=== PATIENT | female | born 1990 | race Caucasian/White ===

== ENCOUNTER → 2020-02-23 09:50 | Outpatient (BNVA) | payer OTHER, SELFPAY | PROVIDERS: PCP Family Medicine; Visit Provider Obstetrics & Gynecology | DX: N75.0 Cyst of Bartholin's gland (principal); Z98.890 Other specified postprocedural states | CPT/HCPCS: 99212 ==

== ENCOUNTER 2020-07-24 14:00 | Outpatient (RCR) | payer OTHER, SELFPAY | END 2020-08-20 12:05 | disposition other institution (70) | LOC: HO.PTWFD 14:00 | PROVIDERS: Visit Provider Family Medicine | DX: M54.12 Radiculopathy, cervical region (principal) | CPT/HCPCS: 97110; 97161; 97535 ==

== ENCOUNTER 2020-09-25 12:46 | Outpatient (REF) | payer OTHER, SELFPAY ==
[2020-09-25 13:40] LABS: MANUAL DIFF FLAG NO
[2020-09-25 13:43] LABS: Basophils Percent Auto 0.1 % (0-2); Eosinophils Absolute Auto 0.1 X10*3/uL (0.0-0.4); Eosinophils Percent Auto 0.7 % (0-4); Hematocrit 41.3 % (37-47); Hemoglobin 13.6 g/dl (12.0-16.0); Imm Gran Abs Auto 0.03 X10*3/uL (0.00-0.03); Imm Gran Pct Auto 0.4 % (0.0-0.4); Lymphocytes Absolute Auto 1.9 X10*3/uL (1.2-4.9); Lymphocytes Percent Auto 24.2 % (20-40); Mean Corpuscular HGB Conc 32.9 g/dl (31.0-35.0); Mean Corpuscular Hemoglobin 29.6 pg (27.0-33.0); Mean Corpuscular Volume 89.8 fL (80-98); Mean Platelet Volume 10.1 fL (9.4-12.3); Monocytes Absolute Auto 0.4 X10*3/uL (0.1-1.2); Monocytes Percent Auto 4.9 % (2-11); Neutrophils Absolute Auto 5.6 X10*3/uL (2.0-8.3); Neutrophils Percent Auto 69.7 % (45-73); Platelet Count 291 X10*3/uL (160-400); Red Cell Distribution Width 12.9 % (11.0-16.0)
[2020-09-25 14:15] LABS: Alanine Aminotransferase 11 U/L (0-31); Albumin Level 4.3 g/dL (3.5-5.0); Alkaline Phosphatase 124 U/L (39-117); Anion Gap 13 (12-20); Aspartate Amino Transferase 14 U/L (5-31); Bilirubin Total 0.9 mg/dL (0.0-1.0); Blood Urea Nitrogen 15 mg/dL (9-16); Calcium 9.3 mg/dL (8.4-10.2); Carbon Dioxide 26 mmol/L (22-29); Chloride 106 mmol/L (96-108); Estimated Glomerular Filt Rate > 60; Glucose Random 83 mg/dL (60-115); Potassium 4.1 mmol/L (3.3-5.1); Sodium 141 mmol/L (135-145)
[2020-09-25 14:38] LABS: TSH reflex Free T4 0.56 uIU/mL (0.32-4.0)
== END 2020-09-25 12:47 | disposition home or self-care (01) ==
LOC: HO.WFDLDS 12:46
PROVIDERS: Visit Provider Family Medicine
DX: Z00.00 Encounter for general adult medical examination without abnormal findings (principal); R63.4 Abnormal weight loss
CPT/HCPCS: 36415; 80053; 84443; 85025

== ENCOUNTER 2020-12-13 09:27 | Outpatient (REF) | payer OTHER, SELFPAY ==
[2020-12-15 18:06] LABS: HPV mRNA E6/E7 rflx Not Detected (Not Detected)
== END 2020-12-13 09:28 | disposition home or self-care (01) ==
LOC: HO.LAB 09:27
PROVIDERS: PCP Family Medicine; Visit Provider Obstetrics & Gynecology
DX: Z01.419 Encounter for gynecological examination (general) (routine) without abnormal findings (principal); Z11.51 Encounter for screening for human papillomavirus (HPV); N75.0 Cyst of Bartholin's gland
CPT/HCPCS: 87624; 88142

== ENCOUNTER 2021-09-03 10:01 | Outpatient (REF) | payer OTHER, SELFPAY ==
[2021-09-03 10:15] LABS: MANUAL DIFF FLAG NO
[2021-09-03 10:37] LABS: Basophils Percent Auto 0.2 % (0-2); Eosinophils Absolute Auto 0.2 X10*3/uL (0.0-0.4); Eosinophils Percent Auto 1.8 % (0-4); Hematocrit 41.2 % (37.0-47.0); Hemoglobin 13.6 g/dl (12.0-16.0); Imm Gran Abs Auto 0.04 X10*3/uL (0.00-0.03); Imm Gran Pct Auto 0.4 % (0.0-0.4); Lymphocytes Absolute Auto 2.7 X10*3/uL (1.2-4.9); Lymphocytes Percent Auto 29.9 % (20-40); Mean Corpuscular Hemoglobin 29.1 pg (27.0-33.0); Mean Platelet Volume 8.9 fL (9.4-12.3); Monocytes Absolute Auto 0.5 X10*3/uL (0.1-1.2); Monocytes Percent Auto 5.2 % (2-11); Neutrophils Absolute Auto 5.7 x10*3/uL (2.0-8.3); Neutrophils Percent Auto 62.5 % (45-73); Platelet Count 321 X10*3/uL (160-400); Red Blood Count 4.68 X10*6/uL (4.20-5.50); Red Cell Distribution Width 13.4 % (11.0-16.0); White Blood Count 9.1 X10*3/uL (4.8-10.8)
[2021-09-03 11:01] LABS: Alanine Aminotransferase 16 U/L (0-31); Albumin Level 4.2 g/dL (3.5-5.0); Alkaline Phosphatase 126 U/L (39-117); Anion Gap 12 (12-20); Aspartate Amino Transferase 20 U/L (5-31); Bilirubin Total 0.8 mg/dL (0.0-1.0); Blood Urea Nitrogen 16 mg/dL (9-16); Calcium 9.8 mg/dL (8.4-10.2); Carbon Dioxide 28 mmol/L (22-29); Chloride 104 mmol/L (96-108); Cholesterol 211 mg/dL; Estimated Glomerular Filt Rate > 60; Glucose Fasting 94 mg/dL (60-99); HDL Cholesterol 57 mg/dL; LDL Cholesterol Calculated 132 mg/dl; Potassium 4.8 mmol/L (3.3-5.1); Sodium 139 mmol/L (135-145); Total Protein 7.6 g/dL (6.5-8.0); Triglycerides 113 mg/dL
[2021-09-03 11:22] LABS: TSH reflex Free T4 1.66 uIU/mL (0.32-4.0)
== END 2021-09-03 10:02 | disposition home or self-care (01) ==
LOC: HO.LAB 10:01
PROVIDERS: PCP Family Medicine; Visit Provider Family Medicine
DX: Z00.00 Encounter for general adult medical examination without abnormal findings (principal)
CPT/HCPCS: 36415; 80053; 80061; 84443; 85025

== ENCOUNTER 2021-09-03 16:47 | Inpatient (IN) | payer OTHER, SELFPAY ==
[2021-09-03] VITALS (7 sets, daily range): BP systolic 113–138; BP diastolic 70–90; PULSE 84–104; RESP 16–18; TEMP 36.6–37; O2SAT 97–100; BMI 24.3
--- NOTE | ~2021-09-03 | XR_ITS ---
EXAMINATION: XR CHEST CLINICAL INFORMATION: Syncope COMPARISON: None TECHNIQUE: 2 views of the chest were obtained. FINDINGS: No significant abnormality is noted involving the heart, lungs, mediastinum, bony thorax or soft tissues. XR/XR chest 2V IMPRESSION: Unremarkable examination.
--- NOTE | ~2021-09-03 | CT_ITS ---
EXAMINATION: CTA OF THE HEAD AND NECK CLINICAL INFORMATION: Recent chiropractic adjustment. Vision changes and syncope. COMPARISON: None. TECHNIQUE: Test bolus sequences followed by intravenous administration 70 mL of Omnipaque 350. Helical imaging was performed in the axial plane from the mediastinum to the skull vertex. Delayed postcontrast imaging of the head was also performed. The data was processed at the biotechnologist's workstation for generation of MIP sequences. Three-dimensional volume rendered reformatted images were also generated at an offline 3-D workstation. Stenoses are assessed in accordance with NASCET criteria unless otherwise indicated. This CT examination was performed using dose optimization techniques as appropriate, variously including the following: *Automated exposure control *Adjustment of mA and/or kV according to patient size (this includes techniques or standardized protocols for targeted exams where dose is matched to indication/reason for exam; i.e. extremities or head) *Use of iterative reconstruction technique DLP: 2358 mGy-cm. FINDINGS: CT head: There is no evidence of acute intracranial hemorrhage or territorial infarction. There is no loss of barnhart to white matter differentiation. No abnormal mass effect or midline shift is seen. No extra-axial fluid collections are identified. There is no abnormal enhancement. The ventricles are normal in size. There is no abnormal attenuation within the brain parenchyma. The osseous structures and soft tissues are normal. The mastoid air cells are well aerated. Mild mucosal thickening in the maxillary sinuses. CTA neck: The imaged aortic arch and origins of the great vessels are normal. The common carotid arteries are widely patent. The carotid bifurcations are normal. The cervical internal carotid arteries are normal. There is a mild beaded appearance of the V2 segment of the mid right cervical vertebral artery which may be due to underlying mild fibromuscular dysplasia. The nondominant left vertebral artery proximally appears normal, however, along the mid V2 segment, there are areas of mild dilatation and narrowing present. At the C4 level, there is a focal outpouching posterior medially which may represent a small pseudoaneurysm. Distal to this point, there is irregular narrowing of the vessel with eccentric low-attenuation soft tissue posteriorly suspicious for a potential underlying dissection. At the C1-C2 level, the V3 segment of the left vertebral artery is also mildly irregular in caliber with a questionable faint dissection flap visible at the craniocervical junction within the vessel. The soft tissues of the neck are unremarkable. Disc-osteophyte complex visible at the C5-C6 level with a left paracentral disc protrusion mildly impressing upon the ventral cord. There is a mild leftward curvature of the lower cervical spine. The imaged portions of the lungs are clear. CTA head: The intradural left vertebral artery is mildly irregular in caliber. The right vertebral artery appears normal. The basilar artery opacifies normally. The posterior cerebral arteries are widely patent. There is either a prominent infundibular origin of the inferolateral trunk along the lateral wall of the cavernous segment of the right internal carotid artery versus a 2 mm aneurysm. Additionally, there is a 2 mm medial paraclinoid segment aneurysm arising from the right internal carotid artery distally. The internal carotid arteries otherwise opacify normally. There is an incidental azygous JANET. The MCA vascular complexes bilaterally are normal. The venous sinuses opacify normally. CT/CT angio head neck IMPRESSION: Imaging findings suspicious for a nonocclusive left vertebral artery dissection with a small pseudoaneurysm in the mid cervical V2 segment. No high-grade stenoses. Mildly beaded appearance of the mid cervical right vertebral artery which may be due to underlying fibromuscular dysplasia. Conspicuous infundibular origin of the inferolateral trunk versus 2 mm aneurysm arising from the lateral wall of the cavernous segment of the right ICA. 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 Disc-osteophyte complex with a left paracentral disc protrusion mildly impressing upon the ventral cord at the C5-C6 level. Imaging findings reported to HARMEET Cambpell at 8:28 PM on 09/03/2021.
--- NOTE | ~2021-09-03 | MR_ITS ---
EXAMINATION: MR BRAIN WITHOUT CONTRAST MR ANGIOGRAPHY NECK WITHOUT AND WITH CONTRAST MR ANGIOGRAPHY HEAD WITHOUT CONTRAST CLINICAL INFORMATION: Evaluate vertebral artery dissection. COMPARISON: CT angiography from 09/03/2021. TECHNIQUE: Multiplanar, multisequence imaging was obtained without intravenous contrast. 2-D [id number] and postcontrast MRA of the neck obtained with 3-D [id number] MRA of the head. Additional axial T1 fat-saturated imaging of the neck obtained. The patient received 10 mL of Gadavist for the postcontrast cervical MRA portion of the exam. Stenoses are assessed in accordance with NASCET criteria unless otherwise indicated. Limited study with motion artifacts. FINDINGS: MRI BRAIN: No diffusion abnormality is seen. No brain parenchymal signal abnormality is seen. The ventricles are normal in size. No mass effect or midline shift is evident. No extra-axial fluid collections are noted. The brainstem is normal. The cerebellar tonsils are low in position, more so on the right side but without mass effect upon the brainstem or upper cervical cord. The marrow signal is normal. The visualized portions of the major intracranial flow-voids at the level of the [place] of [place] are preserved. The dural venous sinus flow-voids are maintained. The mastoid air cells are well-aerated. There is mild mucosal thickening in the maxillary sinus cavities with a moderate leftward nasal septal deviation. MRA HEAD: As seen on CT angiography, there is an incidental azygous JANET. Small 2 mm aneurysm noted along the lateral wall of the cavernous right internal carotid artery. Additional 3 mm medial paraclinoid segment aneurysm of the left internal carotid artery again visible. The remainder of the anterior and posterior circulation vasculature are otherwise normal. No stenoses or occlusions are seen. No vascular malformation identified. MRA NECK: The imaged aortic arch and origins of the great vessels are normal. The common carotid arteries, carotid bifurcations, and internal carotid arteries are grossly normal with flow-related signal and contrast opacification. On the T1 fat-saturated acquisition, there is abnormal crescentic intramural hyperintense signal in the V2 segment of the right vertebral artery, consistent with a nonocclusive dissection, presumably subacute in age. Significant irregularity of the left vertebral artery again evident but better characterized on the CT angiogram, again suspected to be due to an underlying dissection. The small pseudoaneurysm described at the C4 level on the prior CTA is not well correlated. MR/MR angio head wo con IMPRESSION: No acute intracranial process. Low-lying cerebellar tonsils which may signify a developmental Chiari I malformation or acquired idiopathic intracranial hypotension; clinically correlate. 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 Irregular caliber of the nondominant left vertebral artery better assessed on prior CT angiography, again most suspicious for a nonocclusive dissection. Small pseudoaneurysm not well correlated on MR angiography. Abnormal crescentic intramural signal within the mid cervical right vertebral artery, consistent with a nonocclusive vascular dissection.
--- NOTE | ~2021-09-03 | MR_ITS ---
EXAMINATION: MR BRAIN WITHOUT CONTRAST MR ANGIOGRAPHY NECK WITHOUT AND WITH CONTRAST MR ANGIOGRAPHY HEAD WITHOUT CONTRAST CLINICAL INFORMATION: Evaluate vertebral artery dissection. COMPARISON: CT angiography from 09/03/2021. TECHNIQUE: Multiplanar, multisequence imaging was obtained without intravenous contrast. 2-D zmcj-tn-[id number] and postcontrast MRA of the neck obtained with 3-D myok-kn-vwjals MRA of the head. Additional axial T1 fat-saturated imaging of the neck obtained. The patient received 10 mL of Gadavist for the postcontrast cervical MRA portion of the exam. Stenoses are assessed in accordance with NASCET criteria unless otherwise indicated. Limited study with motion artifacts. FINDINGS: MRI BRAIN: No diffusion abnormality is seen. No brain parenchymal signal abnormality is seen. The ventricles are normal in size. No mass effect or midline shift is evident. No extra-axial fluid collections are noted. The brainstem is normal. The cerebellar tonsils are low in position, more so on the right side but without mass effect upon the brainstem or upper cervical cord. The marrow signal is normal. The visualized portions of the major intracranial flow-voids at the level of the [place] are preserved. The dural venous sinus flow-voids are maintained. The mastoid air cells are well-aerated. There is mild mucosal thickening in the maxillary sinus cavities with a moderate leftward nasal septal deviation. MRA HEAD: As seen on CT angiography, there is an incidental azygous JANET. Small 2 mm aneurysm noted along the lateral wall of the cavernous right internal carotid artery. Additional 3 mm medial paraclinoid segment aneurysm of the left internal carotid artery again visible. The remainder of the anterior and posterior circulation vasculature are otherwise normal. No stenoses or occlusions are seen. No vascular malformation identified. MRA NECK: The imaged aortic arch and origins of the great vessels are normal. The common carotid arteries, carotid bifurcations, and internal carotid arteries are grossly normal with flow-related signal and contrast opacification. On the T1 fat-saturated acquisition, there is abnormal crescentic intramural hyperintense signal in the V2 segment of the right vertebral artery, consistent with a nonocclusive dissection, presumably subacute in age. Significant irregularity of the left vertebral artery again evident but better characterized on the CT angiogram, again suspected to be due to an underlying dissection. The small pseudoaneurysm described at the C4 level on the prior CTA is not well correlated. MR/MR head/brain wo con IMPRESSION: No acute intracranial process. Low-lying cerebellar tonsils which may signify a developmental Chiari I malformation or acquired idiopathic intracranial hypotension; clinically correlate. 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 Irregular caliber of the nondominant left vertebral artery better assessed on prior CT angiography, again most suspicious for a nonocclusive dissection. Small pseudoaneurysm not well correlated on MR angiography. Abnormal crescentic intramural signal within the mid cervical right vertebral artery, consistent with a nonocclusive vascular dissection.
--- NOTE | ~2021-09-03 | MR_ITS ---
EXAMINATION: MR BRAIN WITHOUT CONTRAST MR ANGIOGRAPHY NECK WITHOUT AND WITH CONTRAST MR ANGIOGRAPHY HEAD WITHOUT CONTRAST CLINICAL INFORMATION: Evaluate vertebral artery dissection. COMPARISON: CT angiography from 09/03/2021. TECHNIQUE: Multiplanar, multisequence imaging was obtained without intravenous contrast. 2-D unoo-wf-essmti and postcontrast MRA of the neck obtained with 3-D rptl-um-bwdkav MRA of the head. Additional axial T1 fat-saturated imaging of the neck obtained. The patient received 10 mL of Gadavist for the postcontrast cervical MRA portion of the exam. Stenoses are assessed in accordance with NASCET criteria unless otherwise indicated. Limited study with motion artifacts. FINDINGS: MRI BRAIN: No diffusion abnormality is seen. No brain parenchymal signal abnormality is seen. The ventricles are normal in size. No mass effect or midline shift is evident. No extra-axial fluid collections are noted. The brainstem is normal. The cerebellar tonsils are low in position, more so on the right side but without mass effect upon the brainstem or upper cervical cord. The marrow signal is normal. The visualized portions of the major intracranial flow-voids at the level of the [place] are preserved. The dural venous sinus flow-voids are maintained. The mastoid air cells are well-aerated. There is mild mucosal thickening in the maxillary sinus cavities with a moderate leftward nasal septal deviation. MRA HEAD: As seen on CT angiography, there is an incidental azygous JANET. Small 2 mm aneurysm noted along the lateral wall of the cavernous right internal carotid artery. Additional 3 mm medial paraclinoid segment aneurysm of the left internal carotid artery again visible. The remainder of the anterior and posterior circulation vasculature are otherwise normal. No stenoses or occlusions are seen. No vascular malformation identified. MRA NECK: The imaged aortic arch and origins of the great vessels are normal. The common carotid arteries, carotid bifurcations, and internal carotid arteries are grossly normal with flow-related signal and contrast opacification. On the T1 fat-saturated acquisition, there is abnormal crescentic intramural hyperintense signal in the V2 segment of the right vertebral artery, consistent with a nonocclusive dissection, presumably subacute in age. Significant irregularity of the left vertebral artery again evident but better characterized on the CT angiogram, again suspected to be due to an underlying dissection. The small pseudoaneurysm described at the C4 level on the prior CTA is not well correlated. MR/MR angio neck wo/w con IMPRESSION: No acute intracranial process. Low-lying cerebellar tonsils which may signify a developmental Chiari I malformation or acquired idiopathic intracranial hypotension; clinically correlate. 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 Irregular caliber of the nondominant left vertebral artery better assessed on prior CT angiography, again most suspicious for a nonocclusive dissection. Small pseudoaneurysm not well correlated on MR angiography. Abnormal crescentic intramural signal within the mid cervical right vertebral artery, consistent with a nonocclusive vascular dissection.
--- NOTE | 2021-09-03 17:07 | ED.GENADULT ---
HPI - General Adult General Chief complaint: Syncope Stated complaint: near syncope Time Seen by Provider: 09/03/21 17:07 Source: patient Mode of arrival: ambulatory Limitations: no limitations History of Present Illness HPI narrative: Patient is a 31 year old female presenting to the emergency department today with dizziness, feeling faint, and vision changes. Patient states that quite a few weeks ago, she was having neck pain. She states that 3 weeks ago, she began going to a chiropractor to help with the neck pain. The chiropractor has been manipulating her neck, regularly. Patient states that starting earlier today, she began to have an excessive amount of floaters in her right eyes field of vision. She states that she had an episode where she almost passed out and had to sit down and then felt very dizzy. Patient denies any abdominal pain, nausea, vomiting, fever, chills, blurry vision, double vision, loss of vision, chest pain, difficulty breathing, shortness of breath, back pain, night sweats, pain with urination, increased urinary frequency, increased urinary urgency, blood in her urine or stool, syncope or a near syncopal episode, recent trauma or falls, bowel incontinence, bladder incontinence, bowel retention, bladder retention, or any other complaints at this time. Onset (ago): hour(s) Related Data Home Medications Medication Instructions Recorded Confirmed hydroxyzine pamoate 50 mg capsule 50 mg PO DAILY PRN cap 01/31/20 09/03/21 fluticasone propionate 50 1 spray INTRANASAL Q12H PRN 09/03/21 09/03/21 mcg/actuation nasal spray,suspension (Flonase Allergy Relief) multivitamin 1 tab PO DAILY 09/03/21 09/03/21 Previous Rx's Medication Instructions Recorded Adderall XR 30 mg capsule,extended 30 mg PO DAILY 30 Days #30 cap NS 08/06/21 release (dextroamphetamine-amphetamine) Allergies Allergy/AdvReac Type Severity Reaction Status Date / Time No Known Allergies Allergy Verified 08/28/21 15:33 Review of Systems Constitutional: Constitutional: Reports no additional constitutional complaints, Denies chills, Denies fever(s) and Denies night sweats Eyes: Eyes: Reports no additional eye complaints, Denies blurry vision, Reports change in vision (increased floaters in right field of vision), Denies diplopia, Denies eye discharge, Denies loss of vision and Denies eye pain ENT: Reports dizziness Cardiovascular: Cardiovascular: Reports no additional cardiovascular complaints, Denies chest pain, Denies lightheadedness, Denies Loss of Consciousness and Denies dyspnea Respiratory: Respiratory: Reports no additional respiratory complaints and Denies dyspnea Gastrointestinal: Gastrointestinal: Reports no additional gastrointestinal complaints, Denies abdominal pain, Denies melena, Denies hematochezia, Denies change in bowel habits and Denies change in stool character Genitourinary: Genitourinary: Denies hematuria, Denies urinary frequency, Denies dysuria, Denies urinary incontinence, Denies urinary hesitancy and Denies urinary urgency Musculoskeletal: Musculoskeletal: Reports no additional musculoskeletal complaints, Denies numbness and Denies tingling Neurologic: Reports dizziness, Denies loss of vision, Denies numbness and Denies tingling Psychiatric: Psychiatric: Reports no additional psychiatric complaints Endocrine: Endocrine: Reports no additional endocrine complaints Hematologic/Lymphatic: Hematologic/Lymphatic: Reports no additional hematologic/lymphatic complaints Allergic/Immunologic: Allergic/Immunologic: Reports no additional allergic/immunologic complaints [facility] Past Medical History Attestation statement: The following information was validated with the patient. Source: old records reviewed Medical History Anxiety Surgical History No pertinent past surgical history Family History Family History Father Lung cancer Mother No problems noted. Sister No problems noted. Social History Social History Alcohol intake: current Alcohol intake frequency: holidays/special occasions only Alcohol type: wine Patient Tobacco Use Status: Never used Tobacco Advance Directives: No Advance Directives Information Provided: No Patient : No Sexual orientation: Straight/Heterosexual Gender identity: Female Physical Exam ED Vital Signs: Vital Signs - 24 hr 09/03/21 17:09 09/03/21 18:00 09/03/21 18:52 Temperature 97.9 F Pulse Rate 84 88 Respiratory Rate 18 16 Blood Pressure 129/70 134/86 Pulse Oximetry 97 100 100 09/03/21 19:59 09/03/21 21:49 Temperature 97.8 F 98.6 F Pulse Rate 90 97 Respiratory Rate 16 16 Blood Pressure 113/88 122/84 Pulse Oximetry 98 100 BMI result Body Mass Index 24.3 Const General: cooperative, no acute distress, alert and awake Nutritional Appearance: well nourished Orientation/consciousness: patient oriented x3 Limitations: no limitations HENMT Head: Yes normal to inspection and Yes atraumatic Ears: hearing grossly normal bilaterally and external ears normal General nose exam: Normal external nose present, no nasal discharge noted and no epistaxis Face and sinus: Yes normal facial exam, No abrasion and No laceration Mouth: Normal oral and palatal mucosa present, no drooling and no muffled voice Eyes General: appearance normal, both eyes and all related structures Periorbital: periorbital findings normal Eyelids: Yes eyelids normal Conjunctivae: conjunctivae normal Pupils: Equal, round and reactive pupils present EOM: EOMs intact bilaterally Neck Neck: Yes normal visual inspection, Yes full ROM and Yes no lymphadenopathy Chest Chest palpation & inspection: normal inspection of the chest Resp Effort & Inspection: normal respiratory effort and able to speak in complete sentences Auscultation: clear to auscultation bilaterally Cardio Rate: regular rate Rhythm: regular rhythm GI Inspection: Yes normal to inspection Neuro General: patient oriented x3 and moves all extremities Cranial nerves: Yes Equal, round and reactive pupils present Cognition (Neuro): normal cognition Motor exam (neuro): 5/5 motor strength present throughout Sensory Exam: Normal double simultaneous stimulation for sensation Coordination: [id number] test normal Extrem General: Yes normal to inspection, Yes full ROM and Yes capillary refill normal Psych Appearance: grossly normal Mental Status: mental status grossly normal Affect: normal affect Attitude: cooperative Thought process: Normal thought process present Thought content: Normal thought content present Insight: Good insight present (Psych) Medical Decision Making MDM Narrative Medical decision making narrative: Patient is a 31 year old female presenting to the emergency department today with vision changes, dizziness, and a near syncopal episode. Patient's physical exam was unremarkable. Patient's visual acuity was appropriate. Patient's blood work was unremarkable. Patient's urine showed no acute process. Patient's EKG was unremarkable. Patient's chest x-ray showed no acute process. Patient's CTA of the head was unremarkable. 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 I explained my physical exam findings as well as all test results to the patient. I called and spoke to Dr. Radford, neurologist at [facility], who recommended the patient be kept here and have an MRI in the morning. She stated that they would not be doing any intervention there for this. I spoke to Dr. Olivares, the neurologist air pollution analyst, who agreed with Dr. Radford and recommended the patient be admitted here, given a full dose ASA, and have an MRI in the morning. I spoke to Dr. Haines who agreed to admission. I answered all questions asked by the patient. Patient verbalized agreement and understanding with this treatment plan and admission. Differential Diagnosis Differential Diagnosis: vertebral artery dissection Medical Records Medical records reviewed: Yes I reviewed the patient's medical records. Lab Data Lab results reviewed: Yes I reviewed the patient's lab results. Result diagrams: 09/03/21 17:48 09/03/21 17:48 Labs: Lab Results 09/03/21 09/03/21 09/03/21 Range/Units 17:48 17:48 17:48 WBC 11.0 H (4.8-10.8) X10*3/uL RBC 4.54 (4.20-5.50) X10*6/uL Hgb 13.1 (12.0-16.0) g/dl Hct 39.7 (37.0-47.0) % MCV 87.4 (80.0-98.0) fL MCH 28.9 (27.0-33.0) pg MCHC 33.0 (31.0-35.0) g/dl RDW 13.2 (11.0-16.0) % Plt Count 316 (160-400) X10*3/uL MPV 8.9 L (9.4-12.3) fL Immature Gran % (Auto) 0.6 H (0.0-0.4) % Neut % (Auto) 79.0 H (45-73) % Lymph % (Auto) 15.4 L (20-40) % [place] % (Auto) 4.2 (2-11) % Eos % (Auto) 0.6 (0-4) % Baso % (Auto) 0.2 (0-2) % Lymph # (Auto) 1.7 (1.2-4.9) X10*3/uL [place] # (Auto) 0.5 (0.1-1.2) X10*3/uL Eos # (Auto) 0.1 (0.0-0.4) X10*3/uL Baso # (Auto) 0.0 (0.0-0.2) X10*3/uL Abs Immat Gran (auto) 0.07 H (0.00-0.03) X10*3/uL Absolute Neuts (auto) 8.7 H (2.0-8.3) x10*3/uL Absolute Nucleated RBC 0.000 (0.0-0.012) X10*3/uL Nucleated RBC % (auto) 0.0 (0.0-0.2) /100WBC Sodium 138 (135-145) mmol/L Potassium 4.4 (3.3-5.1) mmol/L Chloride 103 (96-108) mmol/L Carbon Dioxide 26 (22-29) mmol/L Anion Gap 13 (12-20) BUN 16 (9-16) mg/dL Creatinine 0.83 (0.5-1.4) mg/dL Estim Creat Clear Calc 105.1 Estimated GFR > 60 Random Glucose 111 (60-115) mg/dL Calcium 9.8 (8.4-10.2) mg/dL Total Bilirubin 0.4 (0.0-1.0) mg/dL AST 21 (5-31) U/L ALT 16 (0-31) U/L Alkaline Phosphatase 128 H (39-117) U/L Total Protein 7.5 (6.5-8.0) g/dL Albumin 4.2 (3.5-5.0) g/dL TSH 1.30 (0.32-4.0) uIU/mL Beta HCG, Quant < 2 mIU/mL Urine Color Urine Appearance Urine pH (5.0-8.0) Ur Specific [place] (1.005-1.025) Urine Protein (NEG-TRACE) MG/DL Urine Glucose (UA) (NEG) MG/DL Urine Ketones (NEG) MG/DL Urine Blood (NEG) Urine Nitrite (NEG) Ur Leukocyte Esterase (NEG) Urine RBC (0) /HPF Urine WBC (0-4) /HPF Ur Squamous Epith Cells /LPF Amorphous Sediment /LPF Urine Bacteria /LPF COVID-19 ([place]) (Negative) COVID-19 Clin Com 09/03/21 09/03/21 Range/Units 20:12 21:48 WBC (4.8-10.8) X10*3/uL RBC (4.20-5.50) X10*6/uL Hgb (12.0-16.0) g/dl Hct (37.0-47.0) % MCV (80.0-98.0) fL MCH (27.0-33.0) pg MCHC (31.0-35.0) g/dl RDW (11.0-16.0) % Plt Count (160-400) X10*3/uL MPV (9.4-12.3) fL Immature Gran % (Auto) (0.0-0.4) % Neut % (Auto) (45-73) % Lymph % (Auto) (20-40) % [place] % (Auto) (2-11) % Eos % (Auto) (0-4) % Baso % (Auto) (0-2) % Lymph # (Auto) (1.2-4.9) X10*3/uL [place] # (Auto) (0.1-1.2) X10*3/uL Eos # (Auto) (0.0-0.4) X10*3/uL Baso # (Auto) (0.0-0.2) X10*3/uL Abs Immat Gran (auto) (0.00-0.03) X10*3/uL Absolute Neuts (auto) (2.0-8.3) x10*3/uL Absolute Nucleated RBC (0.0-0.012) X10*3/uL Nucleated RBC % (auto) (0.0-0.2) /100WBC Sodium (135-145) mmol/L Potassium (3.3-5.1) mmol/L Chloride (96-108) mmol/L Carbon Dioxide (22-29) mmol/L Anion Gap (12-20) BUN (9-16) mg/dL Creatinine (0.5-1.4) mg/dL Estim Creat Clear Calc Estimated GFR Random Glucose (60-115) mg/dL Calcium (8.4-10.2) mg/dL Total Bilirubin (0.0-1.0) mg/dL AST (5-31) U/L ALT (0-31) U/L Alkaline Phosphatase (39-117) U/L Total Protein (6.5-8.0) g/dL Albumin (3.5-5.0) g/dL TSH (0.32-4.0) uIU/mL Beta HCG, Quant mIU/mL Urine Color YELLOW Urine Appearance HAZY Urine pH 6.5 (5.0-8.0) Ur Specific [place] <= 1.005 (1.005-1.025) Urine Protein NEG (NEG-TRACE) MG/DL Urine Glucose (UA) NEG (NEG) MG/DL Urine Ketones NEG (NEG) MG/DL Urine Blood TRACE (NEG) Urine Nitrite NEG (NEG) Ur Leukocyte Esterase NEG (NEG) Urine RBC 0-2 (0) /HPF Urine WBC 0-2 (0-4) /HPF Ur Squamous Epith Cells 1+ /LPF Amorphous Sediment TRACE /LPF Urine Bacteria 1+ /LPF COVID-19 ([place]) Negative (Negative) COVID-19 Clin Com See Note Imaging Data Chest x-ray: Attestation: I personally reviewed and interpreted this imaging study as follows: My impression: No acute process. Radiologist's impression: EXAMINATION: XR CHEST CLINICAL INFORMATION: Syncope COMPARISON: None TECHNIQUE: 2 views of the chest were obtained. FINDINGS: No significant abnormality is noted involving the heart, lungs, mediastinum, bony thorax or soft tissues. XR/XR chest 2V IMPRESSION: Unremarkable examination. Dictated By: Gurdeep Carmona MD Signed By: Electronically signed by Gurdeep Carmona MD 09/03/21 7113 Head and neck CTA: Attestation: I personally reviewed and interpreted this imaging study as follows: Radiologist's impression: EXAMINATION: CTA OF THE HEAD AND NECK CLINICAL INFORMATION: Recent chiropractic adjustment. Vision changes and syncope. COMPARISON: None. TECHNIQUE: Test bolus sequences followed by intravenous administration 70 mL of Omnipaque 350. Helical imaging was performed in the axial plane from the mediastinum to the skull vertex. Delayed postcontrast imaging of the head was also performed. The data was processed at the soil technologist's workstation for generation of MIP sequences. Three-dimensional volume rendered reformatted images were also generated at an offline 3-D workstation. Stenoses are assessed in accordance with NASCET criteria unless otherwise indicated. This CT examination was performed using dose optimization techniques as appropriate, variously including the following: *Automated exposure control *Adjustment of mA and/or kV according to patient size (this includes techniques or standardized protocols for targeted exams where dose is matched to indication/reason for exam; i.e. extremities or head) *Use of iterative reconstruction technique DLP: 2358 mGy-cm. FINDINGS: CT head: There is no evidence of acute intracranial hemorrhage or territorial infarction. There is no loss of barnhart to white matter differentiation. No abnormal mass effect or midline shift is seen. No extra-axial fluid collections are identified. There is no abnormal enhancement. The ventricles are normal in size. There is no abnormal attenuation within the brain parenchyma. The osseous structures and soft tissues are normal. The mastoid air cells are well aerated. Mild mucosal thickening in the maxillary sinuses. ? CTA neck: The imaged aortic arch and origins of the great vessels are normal. The common carotid arteries are widely patent. The carotid bifurcations are normal. The cervical internal carotid arteries are normal. There is a mild beaded appearance of the V2 segment of the mid right cervical vertebral artery which may be due to underlying mild fibromuscular dysplasia. The nondominant left vertebral artery proximally appears normal, however, along the mid V2 segment, there are areas of mild dilatation and narrowing present. At the C4 level, there is a focal outpouching posterior medially which may represent a small pseudoaneurysm. Distal to this point, there is irregular narrowing of the vessel with eccentric low-attenuation soft tissue posteriorly suspicious for a potential underlying dissection. At the C1-C2 level, the V3 segment of the left vertebral artery is also mildly irregular in caliber with a questionable faint dissection flap visible at the craniocervical junction within the vessel. The soft tissues of the neck are unremarkable. Disc-osteophyte complex visible at the C5-C6 level with a left paracentral disc protrusion mildly impressing upon the ventral cord. There is a mild leftward curvature of the lower cervical spine. The imaged portions of the lungs are clear. CTA head: The intradural left vertebral artery is mildly irregular in caliber. The right vertebral artery appears normal. The basilar artery opacifies normally. The posterior cerebral arteries are widely patent. There is either a prominent infundibular origin of the inferolateral trunk along the lateral wall of the cavernous segment of the right internal carotid artery versus a 2 mm aneurysm. Additionally, there is a 2 mm medial paraclinoid segment aneurysm arising from the right internal carotid artery distally. The internal carotid arteries otherwise opacify normally. There is an incidental azygous JANET. The MCA vascular complexes bilaterally are normal. The venous sinuses opacify normally. CT/CT angio head neck IMPRESSION: ? 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 No high-grade stenoses. ? Mildly beaded appearance of the mid cervical right vertebral artery which may be due to underlying fibromuscular dysplasia. ? Conspicuous infundibular origin of the inferolateral trunk versus 2 mm aneurysm arising from the lateral wall of the cavernous segment of the right ICA. 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 ? Disc-osteophyte complex with a left paracentral disc protrusion mildly impressing upon the ventral cord at the C5-C6 level. ? Imaging findings reported to HARMEET Campbell at 8:28 PM on 09/03/2021. Dictated By: AARON JOHNSON MD Signed By: Electronically signed by AARON JOHNSON MD 09/03/212030 ECG Data Attestation: I personally reviewed and interpreted this ECG as follows: Prior ECG tracings: not available for review Interpretation: Vent. Rate: 085 BPM ? ? Atrial Rate: 085 BPM P-R Int: 134 ms? QRS Dur: 084 ms QT Int: 366 ms ? ? ? P-R-T Axes: 012 046 046 degrees QTc Int: 435 ms ? Normal sinus rhythm Normal ECG No previous ECGs available DD/ [id number] Critical Care Time Critical Care Time Critical Care Time: Yes Total Critical Care Time: 30 Attestation: I spent 30 minutes of Critical Care Time with this patient. This does not include time spent on separately reported billable procedures. 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
--- NOTE | 2021-09-03 17:15 | ECG_ITS ---
Test Reason : SYNCOPE Blood Pressure : / mmHG Vent. Rate : 085 BPM Atrial Rate : 085 BPM P-R Int : 134 ms QRS Dur : 084 ms QT Int : 366 ms P-R-T Axes : 012 046 046 degrees QTc Int : 435 ms Normal sinus rhythm Normal ECG No previous ECGs available Referred By: Katarzyna Campbell Electronically Signed By:KVNG MCKINLEY MD
[2021-09-03 17:52] LABS: MANUAL DIFF FLAG NO
[2021-09-03 17:54] LABS: Basophils Percent Auto 0.2 % (0-2); Eosinophils Absolute Auto 0.1 X10*3/uL (0.0-0.4); Eosinophils Percent Auto 0.6 % (0-4); Hematocrit 39.7 % (37.0-47.0); Hemoglobin 13.1 g/dl (12.0-16.0); Imm Gran Abs Auto 0.07 X10*3/uL (0.00-0.03); Imm Gran Pct Auto 0.6 % (0.0-0.4); Lymphocytes Absolute Auto 1.7 X10*3/uL (1.2-4.9); Lymphocytes Percent Auto 15.4 % (20-40); Mean Corpuscular Hemoglobin 28.9 pg (27.0-33.0); Mean Corpuscular Volume 87.4 fL (80.0-98.0); Mean Platelet Volume 8.9 fL (9.4-12.3); Monocytes Absolute Auto 0.5 X10*3/uL (0.1-1.2); Monocytes Percent Auto 4.2 % (2-11); Neutrophils Absolute Auto 8.7 x10*3/uL (2.0-8.3); Platelet Count 316 X10*3/uL (160-400); Red Blood Count 4.54 X10*6/uL (4.20-5.50); Red Cell Distribution Width 13.2 % (11.0-16.0)
--- NOTE | 2021-09-03 18:08 | PC.NURSE ---
PATIENT UNABLE TO VOID AT THIS TIME ,RN AWARE .
[2021-09-03 18:13] LABS: Alanine Aminotransferase 16 U/L (0-31); Albumin Level 4.2 g/dL (3.5-5.0); Alkaline Phosphatase 128 U/L (39-117); Anion Gap 13 (12-20); Aspartate Amino Transferase 21 U/L (5-31); Bilirubin Total 0.4 mg/dL (0.0-1.0); Blood Urea Nitrogen 16 mg/dL (9-16); Calcium 9.8 mg/dL (8.4-10.2); Carbon Dioxide 26 mmol/L (22-29); Chloride 103 mmol/L (96-108); Creatinine Clr Calc Pharmacy 105.1; Estimated Glomerular Filt Rate > 60; Glucose Random 111 mg/dL (60-115); Potassium 4.4 mmol/L (3.3-5.1); Sodium 138 mmol/L (135-145); Total Protein 7.5 g/dL (6.5-8.0)
[2021-09-03 18:33] LABS: HCG Quantitative < 2 mIU/mL
[2021-09-03] MEDS: 0.9 % Sodium Chloride 1,000 ML 999 ML IVCONT (18:49)
[2021-09-03] MEDS: iohexoL 350 MG/ML 100 ML INFUS..BTL IV (19:24)
[2021-09-03 20:31] LABS: Appearance Urine HAZY; Color Urine YELLOW; Glucose Urine UA NEG (NEG); Leukocyte Esterase Urine NEG (NEG); Nitrite Urine NEG (NEG); PH 6.5 (5.0-8.0); Specific Gravity - Urine <= 1.005 (1.005-1.025); UACC Culture Trigger NO; Urine Blood TRACE (NEG); Urine Ketones NEG (NEG); Urine Protein NEG (NEG-TRACE)
--- NOTE | 2021-09-03 20:37 | PC.NURSE ---
call out to [facility] transfer line @[phone] spoke to fatuma
[2021-09-03 20:58] LABS: Bacteria Urine 1+ /LPF; RBC Urine 0-2 /HPF (0); Squamous Epithelial Cell Urine 1+ /LPF; WBC Urine 0-2 /HPF (0-4)
[2021-09-03 20:59] LABS: Amorphous Sediment Urine TRACE /LPF
--- NOTE | 2021-09-03 21:55 | PHA.MEDREC ---
Pharmacy Consult ? Medication Reconciliation Pharmacy has completed the medication reconciliation.
[2021-09-03] MEDS: Aspirin 81 MG TAB.CHEW 324 MG PO (21:56)
--- NOTE | 2021-09-03 22:04 | PC.NURSE ---
pt resting in bed, pt reminded to keep arm straight in order not to occlude IVF. IV dressing cleaned and redressed to ensure no skin breakdown from IV touching skin. pt denies pain. took ASA PO with no difficulties.
[2021-09-03 22:14] LABS: COVID-19 Test Negative (Negative)
--- NOTE | 2021-09-03 22:39 | P.HPHOSP_ITS ---
History of Present Illness Date of Service: 09/03/21 Chief Complaint: Blurry vision/ double vision 31-year-old female with a past medical history of ADHD presented to the hospital with a chief complaint of blurry vision/ double vision. Patient reports that she has been having neck pain for the past 3 weeks and she has been following with a chiropractor; today she developed acute onset of blurry vision when she woke up; she light herself onto the floor; denies any loss of consciousness. [place] heavy; denied any chest pain or palpitations. Episode lasted for very short period of time. Since afternoon she continued to have blurry vision/ double vision but with single eye closed, she felt fine; denies any headaches. [place] tingling in her hands and feet when episode happened in the morning. Denies any focal weakness. Patient reports that she intermittently gets dizzy/mild blurry when over she stands up suddenly; Review of all other systems is negative except mentioned above ER course: Per ER team patient noted her double vision; otherwise exam was nonfocal; CT angio head and neck showed left vertebral artery dissection; ER team spoke to [facility] vascular Urology who mentioned no acute intervention is recommended- mentioned to get MRI in the morning as a routine stroke workup. ER team also spoke to Dr. Olivares from Neurology who suggested the same. Admitted for further management. Patient received aspirin in the ER. [facility] Medical History Anxiety Family History Father Lung cancer Mother No problems noted. Sister No problems noted. Surgical History No pertinent past surgical history Social History Alcohol intake: current Alcohol intake frequency: holidays/special occasions o nly Alcohol type: wine Patient Tobacco Use Status: Never used Tobacco Advance Directives: No Advance Directives Information Provided: No Patient : No Sexual orientation: Straight/Heterosexual Gender identity: Female Meds Allergies Allergy/AdvReac Type Severity Reaction Status Date / Time No Known Allergies Allergy Verified 08/28/21 15:33 Active Medications: Current Medications Acetaminophen (Acetaminophen 325 Mg Tablet) 650 mg PO Q6H PRN PRN Reason: Pain, Mild (Pain Scale 1-3) Amphetamine/Dextroamphetamine (Dextroamphetamine/Amphetamine Xr 10 Mg Cap.Er.24h) 30 mg PO DAILY [facility] Consult (Consult Rx Perform Med Rec) 1 each MISCELLANE ONCE PRN PRN Reason: Consult order Sodium Chloride (0.9 % Sodium Chloride Flush 3 Ml Syringe) 3 ml IVFLUSH QSHIFT [facility] Home Medications Medication Instructions Recorded Confirmed Last Taken Type hydroxyzine pamoate 50 mg capsule 50 mg PO DAILY PRN cap 01/31/20 09/03/21 Unknown History fluticasone propionate 50 1 spray INTRANASAL Q12H PRN 09/03/21 09/03/21 09/02/21 History mcg/actuation nasal spray,suspension (Flonase Allergy Relief) multivitamin 1 tab PO DAILY 09/03/21 09/03/21 09/03/21 History Physical Exam Vital Signs and Narrative: Vital Signs: Last Vital Signs Temp 98.6 F 09/03/21 21:49 Pulse 97 09/03/21 21:49 Resp 16 09/03/21 21:49 BP 122/84 09/03/21 21:49 Pulse Ox 100 09/03/21 21:49 BMI result Body Mass Index 24.3 Gen: Appears be in no acute distress HEENT: NCAT, Moist mucosa. pupil equal and reactive to light Pulmonary: Vesicular breath sounds, fair air entry CVS: Normal S1-S2 Abdomen: BS+, Soft, Nontender Extremities: Warm well perfused Neuro: AAO timesx3; sensations equal bilaterally; strength equal and 5/5 rachael aterally; cranial nerves intact except patient has blurry vision/ double vision with both eyes a for finger counting; with each eye closed there is no double vision. Results Labs CBC and Chem 7: 09/03/21 17:48 09/03/21 17:48 Labs: Laboratory Results - last 24 hr 09/03/21 09/03/21 09/03/21 17:48 17:48 17:48 MCV 87.4 MCH 28.9 MCHC 33.0 RDW 13.2 Plt Count 316 MPV 8.9 L Immature Gran % (Auto) 0.6 H Neut % (Auto) 79.0 H Lymph % (Auto) 15.4 L [place] % (Auto) 4.2 Eos % (Auto) 0.6 Baso % (Auto) 0.2 Lymph # (Auto) 1.7 [place] # (Auto) 0.5 Eos # (Auto) 0.1 Baso # (Auto) 0.0 Abs Immat Gran (auto) 0.07 H Absolute Neuts (auto) 8.7 H Absolute Nucleated RBC 0.000 Nucleated RBC % (auto) 0.0 Anion Gap 13 Estim Creat Clear Calc 105.1 Estimated GFR > 60 Random Glucose 111 Calcium 9.8 Total Bilirubin 0.4 AST 21 ALT 16 Alkaline Phosphatase 128 H Total Protein 7.5 Albumin 4.2 TSH 1.30 Beta HCG, Quant < 2 Urine Color Urine Appearance Urine pH Ur Specific [place] Urine Protein Urine Glucose (UA) Urine Ketones Urine Blood Urine Nitrite Ur Leukocyte Esterase Urine RBC Urine WBC Ur Squamous Epith Cells Amorphous Sediment Urine Bacteria COVID-19 ([place]) COVID-19 BetaVersity Com 09/03/21 09/03/21 20:12 21:48 MCV MCH MCHC RDW Plt Count MPV Immature Gran % (Auto) Neut % (Auto) Lymph % (Auto) [place] % (Auto) Eos % (Auto) Baso % (Auto) Lymph # (Auto) [place] # (Auto) Eos # (Auto) Baso # (Auto) Abs Immat Gran (auto) Absolute Neuts (auto) Absolute Nucleated RBC Nucleated RBC % (auto) Anion Gap Estim Creat Clear Calc Estimated GFR Random Glucose Calcium Total Bilirubin AST ALT Alkaline Phosphatase Total Protein Albumin TSH Beta HCG, Quant Urine Color YELLOW Urine Appearance HAZY Urine pH 6.5 Ur Specific [place] <= 1.005 Urine Protein NEG Urine Glucose (UA) NEG Urine Ketones NEG Urine Blood TRACE Urine Nitrite NEG Ur Leukocyte Esterase NEG Urine RBC 0-2 Urine WBC 0-2 Ur Squamous Epith Cells 1+ Amorphous Sediment TRACE Urine Bacteria 1+ COVID-19 ([facility]) Negative COVID-19 Clin Com See Note Imaging Radiologist's Impressions: Impressions Chest X-Ray 09/03/21 17:35 IMPRESSION: Unremarkable examination. Head/Neck CTA 09/03/21 19:25 IMPRESSION: Imaging findings suspicious for a nonocclusive left vertebral artery dissection with a small pseudoaneurysm in the mid cervical V2 segment. No high-grade stenoses. Mildly beaded appearance of the mid cervical right vertebral artery which may be due to underlying fibromuscular dysplasia. Conspicuous infundibular origin of the inferolateral trunk versus 2 mm aneurysm arising from the lateral wall of the cavernous segment of the right ICA. 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 Disc-osteophyte complex with a left paracentral disc protrusion mildly impressing upon the ventral cord at the C5-C6 level. Imaging findings reported to HARMEET Campbell at 8:28 PM on 09/03/2021. Assessment and Plan (1) Vertebral artery dissection: Status: Acute Plan 31-year-old female with a past medical history of ADHD presented to the hospital with a chief complaint of blurry vision/ double vision. Noted to have vertebral artery dissection. Admitted for further management. blurry vision/double vision: Left vertebral artery dissection: CT scan also showed small pseudoaneurysm in the midcervical we to segment. No high-grade stenosis. Continue aspirin Will also obtain lipid profile, hemoglobin A1c, TSH MRI brain / MRA head and neck ordered Fall precautions, PT/ OT, speech and swallow eval Echocardiogram neurology consult was notified History of ADHD: Continue home Adderall DVT prophylaxis: SCD boots Code status: Full code Quality Stroke Does the patient have a stroke diagnosis?: No VTE Prior VTE?: No VTE Risk Level:: Medical - moderate - high VTE Device Contraindication: N/A - Device Ordered VTE Drug Contraindication: Treatment Not Indicated
[2021-09-04] VITALS (11 sets, daily range): BP systolic 105–133; BP diastolic 62–87; PULSE 78–109; RESP 15–18; TEMP 36.7–36.9; O2SAT 97–100
[2021-09-04] MEDS: 0.9 % Sodium Chloride Flush 3 ML SYRINGE IVFLUSH ×3 (01:22→15:24)
--- NOTE | 2021-09-04 06:28 | PC.NURSE ---
pt assisted to BR, pt instructed to sit on the edge of the bed before getting up. steady gait while ambulating to BR.. pt somewhat tremulous after getting back from BR, no c/o dizziness with transfer. pt HR was 109 after getting back to bed, decreased to 90 after resting in bed for a moment
--- NOTE | 2021-09-04 06:30 | PC.NURSE ---
MRI form filled out with pt and faxed to MRI
--- NOTE | 2021-09-04 06:50 | PC.NURSE ---
pt given iram nikkie and saltines. resting in bed on cell phone
[2021-09-04 07:14] LABS: MANUAL DIFF FLAG NO
[2021-09-04 07:18] LABS: Basophils Percent Auto 0.2 % (0-2); Eosinophils Absolute Auto 0.1 X10*3/uL (0.0-0.4); Hemoglobin 11.9 g/dl (12.0-16.0); Imm Gran Abs Auto 0.06 X10*3/uL (0.00-0.03); Imm Gran Pct Auto 0.6 % (0.0-0.4); Lymphocytes Absolute Auto 2.4 X10*3/uL (1.2-4.9); Mean Corpuscular HGB Conc 33.1 g/dl (31.0-35.0); Mean Corpuscular Hemoglobin 29.2 pg (27.0-33.0); Mean Corpuscular Volume 88.2 fL (80.0-98.0); Monocytes Absolute Auto 0.6 X10*3/uL (0.1-1.2); Monocytes Percent Auto 5.8 % (2-11); Neutrophils Absolute Auto 6.5 x10*3/uL (2.0-8.3); Neutrophils Percent Auto 67.4 % (45-73); Platelet Count 275 X10*3/uL (160-400); Red Blood Count 4.08 X10*6/uL (4.20-5.50); Red Cell Distribution Width 13.2 % (11.0-16.0); White Blood Count 9.7 X10*3/uL (4.8-10.8)
[2021-09-04 07:37] LABS: Cholesterol 178 mg/dL; HDL Cholesterol 51 mg/dL; LDL Cholesterol Calculated 119 mg/dl; Triglycerides 44 mg/dL
[2021-09-04 07:51] LABS: Anion Gap 10 (12-20); Blood Urea Nitrogen 12 mg/dL (9-16); Calcium 9.2 mg/dL (8.4-10.2); Carbon Dioxide 28 mmol/L (22-29); Chloride 107 mmol/L (96-108); Creatinine Clr Calc Pharmacy 101.5; Estimated Glomerular Filt Rate > 60; Glucose Random 89 mg/dL (60-115); Potassium 4.5 mmol/L (3.3-5.1); Sodium 140 mmol/L (135-145)
--- NOTE | 2021-09-04 08:35 | P.CNNE_ITS ---
History of Present Illness Data of Consult Service Date: 09/04/21 Primary Care Provider: Hunter Arrington MD HPI Reason for consult: Double vision and blurred vision 31 years old right-handed woman who used to have a headache with frequency of about once every 2 months lasting for few hours started having a headache about a month ago. There was no obvious trigger. It was on the right side originating in right occipital area traveling up to top of her head to the right eye. Headache was continuous and significant. Thinking that this was a pinched nerve in her neck come, she consulted a chiropractitioner. After treatment she felt little bit better but then recently started having some new symptoms. One day her vision was double and then later she started having constriction of her vision like a tunnel vision. At time she was seeing flashy stars in front of her eyes. She felt dizzy unsteady and with somewhat difficulty speaking. With all those symptom she came to emergency room had a CTA of brain and neck done last night with suspicion of vertebral artery dissection. He denied any family history of headaches or any injury before treatment. Review of Systems Review of Systems: No recent cold or flu-like illness PMFSH Past Medical History Medical History (Updated 09/04/21 @ 08:42 by Swati Olivares MD) ADHD Anxiety Family History Family History Father Lung cancer Mother No problems noted. Sister No problems noted. Surgical History Surgical History No pertinent past surgical history Social History Social History Alcohol intake: current Alcohol intake frequency: holidays/special occasions only Alcohol type: wine Patient Tobacco Use Status: Never used Tobacco Advance Directives: No Advance Directives Information Provided: No Patient : No Sexual orientation: Straight/Heterosexual Gender identity: Female Meds Allergies Allergy/AdvReac Type Severity Reaction Status Date / Time No Known Allergies Allergy Verified 08/28/21 15:33 Active Medications: Current Medications Acetaminophen (Acetaminophen 325 Mg Tablet) 650 mg PO Q6H PRN PRN Reason: Pain, Mild (Pain Scale 1-3) Amphetamine/Dextroamphetamine (Dextroamphetamine/Amphetamine Xr 10 Mg Cap .Er.24h) 30 mg PO DAILY [facility] Aspirin (Aspirin Enteric Coated 81 Mg Tablet.) 81 mg PO DAILY [facility] Pharmacy Consult (Consult Rx Perform Med Rec) 1 each MISCELLANE ONCE PRN PRN Reason: Consult order Sodium Chloride (0.9 % Sodium Chloride Flush 3 Ml Syringe) 3 ml IVFLUSH QSHIFT [facility] Last Admin: 09/04/21 01:22 Dose: 3 ml Documented by: Home Medications Medication Instructions Recorded Confirmed Last Taken Type hydroxyzine pamoate 50 mg capsule 50 mg PO DAILY PRN cap 01/31/20 09/03/21 Unknown History fluticasone propionate 50 1 spray INTRANASAL Q12H PRN 09/03/21 09/03/21 09/02/21 History mcg/actuation nasal spray,suspension (Flonase Allergy Relief) multivitamin 1 tab PO DAILY 09/03/21 09/03/21 09/03/21 History Physical Exam Vital Signs: Vital Signs: Last Vital Signs Temp 98.5 F 09/04/21 02:00 Pulse 91 09/04/21 06:53 Resp 18 09/04/21 06:53 BP 112/62 09/04/21 03:52 Pulse Ox 100 09/04/21 06:53 BMI result Body Mass Index 24.3 Neuro: Other: She was alert and awake with normal spontaneity of speech fluency comprehension and anxious affect. Pupils were about 4 mm round reactive to light. Extraocular muscles were intact. Visual muhammad were full. Face was symmetrical. There was no pronator drift. [id number] testing was normal. Deep tendon reflexes were good 2+ with flexor plantars. Speech was normal. Results Labs CBC & Chem 7: 09/04/21 07:00 09/04/21 07:00 Labs: Short CBC 09/03/21 09/04/21 Range/Units 17:48 07:00 WBC 11.0 H 9.7 (4.8-10.8) X10*3/uL Hgb 13.1 11.9 L (12.0-16.0) g/dl Hct 39.7 36.0 L (37.0-47.0) % Plt Count 316 275 (160-400) X10*3/uL BMP 09/03/21 09/04/21 17:48 07:00 Sodium 138 140 Potassium 4.4 4.5 Chloride 103 107 Carbon Dioxide 26 28 BUN 16 12 Creatinine 0.83 0.86 Calcium 9.8 9.2 D Liver Function 09/03/21 Range/Units 17:48 Total Bilirubin 0.4 (0.0-1.0) mg/dL AST 21 (5-31) U/L ALT 16 (0-31) U/L Alkaline Phosphatase 128 H (39-117) U/L Albumin 4.2 (3.5-5.0) g/dL Urine 09/03/21 Range/Units 20:12 Urine Color YELLOW Urine Appearance HAZY Urine pH 6.5 (5.0-8.0) Ur Specific [place] <= 1.005 (1.005-1.025) Urine Protein NEG (NEG-TRACE) MG/DL Urine Glucose (UA) NEG (NEG) MG/DL Noncontrast head CT did not reveal any significant abnormality. CTA of brain revealed possible fibromuscular dysplasia of right vertebral artery, possible dissection of left vertebral artery, and a tiny right ICA infundibulum or aneurysm. Assessment and Plan (1) Status migrainosus: Status: Acute 31 years old woman who is overall clinical picture at this time is suggestive of status migrainosus with basilar or brainstem type of migraine. Differential diagnosis could be brought and might include vertebral artery or basilar artery dissection or disease but that would not explain all her symptoms. Findings on CTA might be due to complex and prolonged migraine resulting in vaso spasm instead of fibromuscular dysplasia. I would recommend obtaining an MRI to definitively comment on the possibility of vertebral dissection. As far as small aneurysm is concerned, that would also be looked at with repeat scan in few months time when she was not having headache. For now, p.r.[email or web address] Trotter reassurance and education and MRI of brain is recommended. (2) Basilar migraine: Status: Acute Procedures Date of Service Date of Service: 09/04/21
[2021-09-04] MEDS: Aspirin Enteric Coated 81 MG TABLET.DR PO (09:08)
[2021-09-04] MEDS: Dextroamphetamine/Amphetamine XR 10 MG CAP.ER.24H 30 MG PO (09:08)
--- NOTE | 2021-09-04 09:21 | MHC.CM.PN ---
PT REPORTS SHE LIVES WITH TWO ROOM MATES AND IS INDEPENDENT WITH CARE PT HAS NO DME AND NO HOME SERVICES PT CONFIRMS HER PCP IS MATIAS MATTHEWS PT REPORTS SHE DOES NOT HAVE A HCP BUT DOES NOT KNOW WHO SHE WOULD CHOOSE SO DECLINES TO COMPLETE ONE TODAY PT REPORTS SHE IS BOTH VACCINATED AND BOOSTED AGAINST COVID-19 DC PLAN, HOME NO SERVICES PT TO SELF ARRANGE TRANSPORT
--- NOTE | 2021-09-04 13:43 | MHC.SP.ADU ---
Referring provider: Bret Haines MD Reason for Referral: Speech and swallow eval Type of Treatment: 78398 Clinical Swallowing Evaluation Date of Plan of Treatment: 09/04/21 Onset of Symptoms/Illness: 09/03/21 Date Treatment Started: 09/04/21 Medical Diagnosis: Vertebral artery dissection Primary Speech Language Diagnosis: Secondary Speech Language Diagnosis: History Patient is a 31 year old female being worked up in the ED for vertebral artery dissection. Per MD note: 31 years old right-handed woman who used to have a headache with frequency of about once every 2 months lasting for few hours started having a headache about a month ago. There was no obvious trigger. It was on the right side originating in right occipital area traveling up to top of her head to the right eye. Headache was continuous and significant. Thinking that this was a pinched nerve in her neck come, she consulted a chiropractitioner. After treatment she felt little bit better but then recently started having some new symptoms. One day her vision was double and then later she started having constriction of her vision like a tunnel vision. At time she was seeing flashy stars in front of her eyes. She felt dizzy unsteady and with somewhat difficulty speaking. With all those symptom she came to emergency room had a CTA of brain and neck done last night with suspicion of vertebral artery dissection. He denied any family history of headaches or any injury before treatment. Patient was seen by Neurology, brain MRI pending. She was placed on fall precautions, consults placed for PT, OT, and COUNTER CASER by MD in the ED. 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 No high-grade stenoses. Mildly beaded appearance of the mid cervical right vertebral artery which may be due to underlying fibromuscular dysplasia. Conspicuous infundibular origin of the inferolateral trunk versus 2 mm aneurysm arising from the lateral wall of the cavernous segment of the right ICA. 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 Disc-osteophyte complex with a left paracentral disc protrusion mildly impressing upon the ventral cord at the C5-C6 level. Medical History: Other: Anxiety, ADHD Patient Orientation: Alert & Oriented x 4 Swallowing History: Dysphagia Specific: Within Functional Limits Comments: Oral mech exam was unremarkable. Patient consumed dry glenn crackers and thin liquid by cup. Unremarkable oral phase. Timely swallow. Complete oral clearance. No clinical signs of aspiration. Patient denies any difficulty swallowing. Notified , RN, RD of results via Revloc Message. Pre-eval Risk for Aspiration: Pre-evaluation Dietary Consistencies: Regular Pre-eval Liquid Intake: Thin Pre-eval Medication Intake: Whole with Liquid Reported Speech, Language, Cognition difficulties: Not Applicable Assessment Speech Production: Within Functional Limits Clinical Impression: Observations: Patient's speech was clear. She answered questions and followed directions without any difficulty. Patient used complete sentences with appropriate syntactic structure. No word retrieval difficulties. Patient denies any changes to her speech/language. Informal Voice Assessment: Voice Loudness: Normal Voice Nasal Resonance: Normal Voice Oral Resonance: Normal Voice Phonatory-based Quality: Normal Voice Pitch: Normal Voice Other Observations: Clinical Impression: Intact Clinicial Observations: Patient's vocal quality deemed to be WFL based on age and gender. Tests of Cognition: CLQT Clinical Impression: Intact Observations: Patient was administered the Cognitive Linguistic Quick Test (CLQT). The CLQT is a criterion-referenced assessment used to gain information about an individual?s relative strengths and weaknesses and to identify deficits in cognitive-linguistic skills in individuals aged 18-89 years old. The CLQT generates severity ratings in the following five cognitive domains: Attention, Memory, Language, Executive Functions, and Visuospatial Skills. Patient?s performance on the CLQT is displayed below: Task: Criterion Cut Score, Patient?s Score, Interpretation Personal Facts: 8, 8, Within Functional Limits Symbol Cancellation: 11, 12, Within Functional Limits Confrontational Namin, 10, Within Functional Limits Clock Drawin, 13, Within Functional Limits Story Retellin, 10, Within Functional Limits Symbol Trails: 9, 10, Within Functional Limits Generative Namin, 8, Within Functional Limits Design Memory: 5, 6, Within Functional Limits Mazes: 7, 8, Within Functional Limits Design Generation: 6, 11, Within Functional Limits Task scores were summed together based on cognitive domain. Cognitive Domain scores are as follows: Cognitive Domain: Domain Score, Severity Range, Severity Rating Attention: 213, WFL, 4 Memory: 184, WFL, 4 Executive Functions: 37, WFL, 4 Language: 36, WFL, 4 Visuospatial Skills: 103, WFL, 4 Patient?s cognitive linguistic skills are deemed to be within functional limits. 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
--- NOTE | 2021-09-04 13:48 | P.PNIM_ITS ---
Subjective Subjective Date of Service: 09/04/21 Interval History: MARES mild still having visual disturbances vertigo improved Review of Systems Review of Systems: Yes all other systems are reviewed and are negative Physical Exam Vital Signs: Vital Signs: Last Vital Signs Temp 98.5 F 09/04/21 02:00 Pulse 91 09/04/21 06:53 Resp 18 09/04/21 06:53 BP 112/62 09/04/21 03:52 Pulse Ox 100 09/04/21 06:53 BMI result Body Mass Index 24.3 Gen: in no acute distress HEENT: sclera anicteric, moist mucus membranes Neck: supple Lungs: clear to auscultation bilaterally Heart: regular rate and rhythm, no murmurs Abd: soft, non-tender, non-distended Ext: no edema Skin: warm/well-perfused Neuro: alert and oriented x3, no focal findings Psych: appropriate affect Objective Data Active Medications Acetaminophen (Acetaminophen 325 Mg Tablet) 650 mg PO Q6H PRN PRN Reason: Pain, Mild (Pain Scale 1-3) Amphetamine/Dextroamphetamine (Dextroamphetamine/Amphetamine Xr 10 Mg Cap.Er.24h) 30 mg PO DAILY [facility] Last Admin: 09/04/21 09:08 Dose: 30 mg Documented by: NIKOLAY Aspirin (Aspirin Enteric Coated 81 Mg Tablet.Dr) 81 mg PO DAILY [facility] Last Admin: 09/04/21 09:08 Dose: 81 mg Documented by: NIKOLAY Pharmacy Consult (Consult Rx Perform Med Rec) 1 each MISCELLANE ONCE PRN PRN Reason: Consult order Sodium Chloride (0.9 % Sodium Chloride Flush 3 Ml Syringe) 3 ml IVFLUSH QSHIFT [facility] Last Admin: 09/04/21 09:12 Dose: 3 ml Documented by: NIKOLAY Labs CBC & Chem 7: 09/04/21 07:00 09/04/21 07:00 Labs: Laboratory Results - last 24 hr 09/03/21 09/03/21 09/03/21 17:48 17:48 17:48 MCV 87.4 MCH 28.9 MCHC 33.0 RDW 13.2 Plt Count 316 MPV 8.9 L Immature Gran % (Auto) 0.6 H Neut % (Auto) 79.0 H Lymph % (Auto) 15.4 L [place] % (Auto) 4.2 Eos % (Auto) 0.6 Baso % (Auto) 0.2 Lymph # (Auto) 1.7 [place] # (Auto) 0.5 Eos # (Auto) 0.1 Baso # (Auto) 0.0 Abs Immat Gran (auto) 0.07 H Absolute Neuts (auto) 8.7 H Absolute Nucleated RBC 0.000 Nucleated RBC % (auto) 0.0 Anion Gap 13 Estim Creat Clear Calc 105.1 Estimated GFR > 60 Random Glucose 111 Calcium 9.8 Total Bilirubin 0.4 AST 21 ALT 16 Alkaline Phosphatase 128 H Total Protein 7.5 Albumin 4.2 Triglycerides Cholesterol LDL Cholesterol, Calc HDL Cholesterol TSH 1.30 Beta HCG, Quant < 2 Urine Color Urine Appearance Urine pH Ur Specific [place] Urine Protein Urine Glucose (UA) Urine Ketones Urine Blood Urine Nitrite Ur Leukocyte Esterase Urine RBC Urine WBC Ur Squamous Epith Cells Amorphous Sediment Urine Bacteria COVID-19 ([facility]) COVID-[facility] Clin Com 09/03/21 09/03/21 09/04/21 20:12 21:48 07:00 MCV 88.2 MCH 29.2 MCHC 33.1 RDW 13.2 Plt Count 275 MPV 9.0 L Immature Gran % (Auto) 0.6 H Neut % (Auto) 67.4 Lymph % (Auto) 25.0 [place] % (Auto) 5.8 Eos % (Auto) 1.0 Baso % (Auto) 0.2 Lymph # (Auto) 2.4 [place] # (Auto) 0.6 Eos # (Auto) 0.1 Baso # (Auto) 0.0 Abs Immat Gran (auto) 0.06 H Absolute Neuts (auto) 6.5 Absolute Nucleated RBC 0.000 Nucleated RBC % (auto) 0.0 Anion Gap Estim Creat Clear Calc Estimated GFR Random Glucose Calcium Total Bilirubin AST ALT Alkaline Phosphatase Total Protein Albumin Triglycerides Cholesterol LDL Cholesterol, Calc HDL Cholesterol TSH Beta HCG, Quant Urine Color YELLOW Urine Appearance HAZY Urine pH 6.5 Ur Specific [place] <= 1.005 Urine Protein NEG Urine Glucose (UA) NEG Urine Ketones NEG Urine Blood TRACE Urine Nitrite NEG Ur Leukocyte Esterase NEG Urine RBC 0-2 Urine WBC 0-2 Ur Squamous Epith Cells 1+ Amorphous Sediment TRACE Urine Bacteria 1+ COVID-19 ([facility]) Negative COVID-19 Clin Com See Note 09/04/21 09/04/21 07:00 07:00 MCV MCH MCHC RDW Plt Count MPV Immature Gran % (Auto) Neut % (Auto) Lymph % (Auto) [place] % (Auto) Eos % (Auto) Baso % (Auto) Lymph # (Auto) [place] # (Auto) Eos # (Auto) Baso # (Auto) Abs Immat Gran (auto) Absolute Neuts (auto) Absolute Nucleated RBC Nucleated RBC % (auto) Anion Gap 10 L Estim Creat Clear Calc 101.5 Estimated GFR > 60 Random Glucose 89 Calcium 9.2 D Total Bilirubin AST ALT Alkaline Phosphatase Total Protein Albumin Triglycerides 44 Cholesterol 178 LDL Cholesterol, Calc 119 HDL Cholesterol 51 TSH Beta HCG, Quant Urine Color Urine Appearance Urine pH Ur Specific [place] Urine Protein Urine Glucose (UA) Urine Ketones Urine Blood Urine Nitrite Ur Leukocyte Esterase Urine RBC Urine WBC Ur Squamous Epith Cells Amorphous Sediment Urine Bacteria COVID-19 ([facility]) COVID-19 Clin Com Assessment and Plan (1) Basilar migraine: Status: Acute (2) Cervical radiculopathy: Status: Acute (3) Vertebral artery dissection: Status: Acute Plan hospital d#2 31yo F with ADHD presenting with visual disturbances + vertigo, CTA conccerning for vertebral artery dissection vs. vasospasm vs. fibromuscular dysplasia # question of nonocculsive left vertebral artery dissection # question of FMD of mid-cervical R vertebral artery - MRI/MRA pending, Neuro consulted - TTE pending - continue ASA # question of aneurysm of right ICA - repeat scan as outpt in a few months # possible complex migraine - Neuro consulted, prn Fioricet # ADHD - continue Adderall # VTE ppx - SCDs In my clinical judgment, the patient requires continued hospitalization for the following reasons:neuroimaging Quality Stroke Does the patient have a stroke diagnosis?: No VTE Prior VTE?: No VTE Risk Level:: Medical - moderate - high VTE Device Contraindication: N/A - Device Ordered VTE Drug Contraindication: Treatment Not Indicated
[2021-09-05] MEDS: 0.9 % Sodium Chloride Flush 3 ML SYRINGE IVFLUSH ×2 (00:55→10:09)
[2021-09-05 04:00] VITALS: BP 137/79; PULSE 80; RESP 16; TEMP 36.2; O2SAT 98
--- NOTE | 2021-09-05 07:00 | CA_ITS ---
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 The visually estimated ejection fraction is between 65-70%. Diastolic function is normal for age. Right Ventricle Normal right ventricular cavity size and systolic function. Atria Both atria are normal in size. There is no evidence of interatrial shunt by agitated saline. Aortic Valve Normal aortic valve structure and function. There is no aortic valve stenosis. There is no aortic valve regurgitation. Mitral Valve Normal mitral valve structure and function. There is trace mitral valve regurgitation. There is no mitral valve stenosis. Pulmonic Valve The pulmonic valve is likely normal. Tricuspid Valve Normal tricuspid valve structure. There is trace tricuspid valve regurgitation. The right ventricular systolic pressure is normal. The right ventricular systolic pressure is 10 mmHg. Normal right atrial pressure. There is no evidence of pulmonary hypertension. Great Vessels All visible segments of the aorta are normal in size. The pulmonary artery was not well visualized. Venous The inferior vena cava is normal in size and collapses greater than 50% with inspiration. Pericardium/Pleural There is no evidence of pericardial effusion. Prior Study Comparison No prior study available for comparison. Recommendations, Care & Conclusions Consider a CLEMENTE if clinically appropriate. Measurements 2D Linear Measurements IVSd: 0.96 0.6-0.9/0.6-1.0 cm LVIDd: 3.30 3.9-5.3/4.2-5.9 cm LVIDd Index: 1.69 2.4-3.2/2.2-3.1 cm/m2 LVIDs: 2.16 2.0-3.6 cm LVPWd: 0.91 0.7-1.1 cm LA Diam: 3.00 2.7-3.8/3.0-4.0 cm LAIDs Index: 1.54 1.5-2.3 cm/m2 LV Mass: 105.92 67-162/88-224 g LV Mass Index: 54.32 43-95/49-115 g/m2 LVOT Diam: 2.00 3.0+(-)1.3 cm 2D Systolic Function EF 4C: 70.50 >55% EF 2C: 71.20 >55% EF BiP: 71.00 >55% Mitral Valve MV Pk E: 0.72 MV PK A: 0.54 MV Decel Time: 202.00 E/A: 1.30 E'Lateral: 17.30 E'Medial: 12.30 E/E' Med: 5.90 E/E' Lat: 4.20 PHT: 59.00 MVA PHT: 3.73 Decel [place]: 3.58 Aortic Valve AoV Pk Brad: 1.29 AoV Mn Brad: 0.94 AoV VTI: 0.24 AoV Pk Grad: 7.00 Aov Mn Grad: 4.00 AMEYA Cont.VTI: 2.74 LVOT LVOT Pk Brad: 1.14 LVOT Mn Brad: 0.73 LVOT VTI: 0.21 LVOT Pk Grad: 5.00 LVOT Mn Grad: 3.00 LVOT Diam: 2.00 LVOT Area: 3.14 Diastolic Function MV Pk E: 0.72 MV Pk A: 0.54 E/A: 1.30 E'Medial: 12.30 E/E' Med: 5.90 E' Laterial: 17.30 E/E' Lat: 4.20 Right Ventricle TAPSE (mm): 19.20 TVS' Brad: 17.40 Tricuspid Valve TR Pk Brad: 1.36 TR Pk Grad: 7.00 RA Press: 3.00 RVSP: 10.00 Great Vessels Aorta Sinus of Valsalva: 2.93 2.0-3.[address] [place]: 3.02 1.7-3.4 cm Ao Asc: 3.20 2.1-3.4 cm Ao Arch: 2.60 Updated in Other Vendor System with Status of Final Jesse Ahsley MD electronically signed on 09/05/2021 1:39:19 PM with status of Final
[2021-09-05 07:14] VITALS: BP 118/70; PULSE 86; RESP 17; TEMP 36.6; O2SAT 98
[2021-09-05] MEDS: Dextroamphetamine/Amphetamine XR 10 MG CAP.ER.24H 30 MG PO (10:09)
[2021-09-05] MEDS: VerapamiL HCL SR 120 MG TABLET.ER PO (10:09)
[2021-09-05] MEDS: Aspirin Enteric Coated 81 MG TABLET.DR PO (10:10)
[2021-09-05 10:50] VITALS: BP 146/93; PULSE 93; RESP 17; TEMP 36.1; O2SAT 96
--- NOTE | 2021-09-05 11:33 | PM.DS ---
DS: Providers Provider Date of Service: 09/05/21 Date of admission: 09/03/21 22:35 Primary care physician: Hunter Arrington MD Consults: 09/03/21 22:36 Consult to Neurology Routine Consulting Provider: Swati Olivares Reason for consultation: vertebral artery dissection DS: Diagnosis Discharge Diagnosis (1) Basilar migraine: Status: Acute (2) Cervical radiculopathy: Status: Acute (3) Vertebral artery dissection: Status: Acute (4) Carotid artery aneurysm: Status: Acute DS: Summary Hospital Course Hospital Course: from admission H+P by Lele Haines, 09/03/21: 31-year-old female with a past medical history of ADHD presented to the hospital with a chief complaint of blurry vision/ double vision.? Patient reports that she has been having neck pain for the past 3 weeks and she has been following with a chiropractor; today she developed acute onset of blurry vision when she woke up; she light herself onto the floor; denies any loss of consciousness.? [place] heavy; denied any chest pain or palpitations.? Episode lasted for? very short period of time.? Since afternoon she continued to have blurry vision/ double vision but with single eye closed, she felt fine; denies any headaches.? [place] tingling in her hands and feet when episode happened in the morning. ? Denies any? focal weakness.? Patient reports that she intermittently gets dizzy/mild blurry when over she stands up suddenly; Review of all other systems is negative except mentioned above ER course: Per ER team patient noted her double vision; otherwise exam was nonfocal; CT angio head and neck showed left vertebral artery dissection; ER team spoke to [facility] [Neurology] who mentioned no acute intervention is recommended- mentioned to get MRI in the morning as a routine stroke workup.? ER team also spoke to Dr. Olivares from Neurology who suggested the same.? Admitted for further management.? Patient received aspirin in the ER. This 31yo F with ADHD presenting with visual disturbances + vertigo was admitted with CTA findings concerning for vertebral artery dissection vs. vasospasm vs. fibromuscular dysplasia. MRI/MRA of the head and neck showed: Stable small 2 mm aneurysm arising from the lateral wall of the cavernous segment of the right internal carotid artery intracranially. 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 ? Irregular caliber of the nondominant left vertebral artery better assessed on prior CT angiography, again most suspicious for a nonocclusive dissection. Small pseudoaneurysm not well correlated on MR angiography. ? Abnormal crescentic intramural signal within the mid cervical right vertebral artery, consistent with a nonocclusive vascular dissection. Neurology was consulted. Her presentation was thought most consistent with complex migraine syndrome. She was started on verapamil for preventive treatment and Fiorcet for abortive treatment. 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 She was placed on 3 months of low-dose aspirin. Repeat neuroimaging in 3 months will be ordered by the neurologist, with whom she will follow-up as an outpatient. The question of FMD on the CTA was attributed to likely vasospasm from migraine. As for the incidental carotid artery aneurysms, she will need repeat MRA in 2 years for surveillance. She was discharged home with instructions to follow-up with Primary Care and Neurology. Time Spent with Patient Time attestation: Total time spent providing and/or coordinating discharge services: 35 Discharge coordination time: Greater than 30 minutes Quality: Safe Use of Opioids Does Pt have an Active Cancer Diagnosis on the Problem List?: No Quality: Stroke Does the patient have a stroke diagnosis?: No Physical Exam Vital Signs: Vital Signs: Last Vital Signs Temp 96.9 F 09/05/21 10:50 Pulse 93 09/05/21 10:50 Resp 17 09/05/21 10:50 BP 146/93 H 09/05/21 10:50 Pulse Ox 96 09/05/21 10:50 BMI result Body Mass Index 24.3 Gen: in no acute distress HEENT: sclera anicteric, moist mucus membranes Neck: supple Lungs: clear to auscultation bilaterally Heart: regular rate and rhythm, no murmurs Abd: soft, non-tender, non-distended Ext: no edema Skin: warm/well-perfused Neuro: alert and oriented x3, mild photophobia Psych: appropriate affect DS: Data Data Completed and Pending Completed studies during hospitalization [Text1]: Laboratory Results WBC 9.7 X10*3/uL (4.8-10.8) 09/04/21 07:00 RBC 4.08 X10*6/uL (4.20-5.50) L 09/04/21 07:00 Hgb 11.9 g/dl (12.0-16.0) L 09/04/21 07:00 Hct 36.0 % (37.0-47.0) L 09/04/21 07:00 MCV 88.2 fL (80.0-98.0) 09/04/21 07:00 MCH 29.2 pg (27.0-33.0) 09/04/21 07:00 MCHC 33.1 g/dl (31.0-35.0) 09/04/21 07:00 RDW 13.2 % (11.0-16.0) 09/04/21 07:00 Plt Count 275 X10*3/uL (160-400) 09/04/21 07:00 MPV 9.0 fL (9.4-12.3) L 09/04/21 07:00 Immature Gran % (Auto) 0.6 % (0.0-0.4) H 09/04/21 07:00 Neut % (Auto) 67.4 % (45-73) 09/04/21 07:00 Lymph % (Auto) 25.0 % (20-40) 09/04/21 07:00 [place] % (Auto) 5.8 % (2-11) 09/04/21 07:00 Eos % (Auto) 1.0 % (0-4) 09/04/21 07:00 Baso % (Auto) 0.2 % (0-2) 09/04/21 07:00 Lymph # (Auto) 2.4 X10*3/uL (1.2-4.9) 09/04/21 07:00 [place] # (Auto) 0.6 X10*3/uL (0.1-1.2) 09/04/21 07:00 Eos # (Auto) 0.1 X10*3/uL (0.0-0.4) 09/04/21 07:00 Baso # (Auto) 0.0 X10*3/uL (0.0-0.2) 09/04/21 07:00 Abs Immat Gran (auto) 0.06 X10*3/uL (0.00-0.03) H 09/04/21 07:00 Absolute Neuts (auto) 6.5 x10*3/uL (2.0-8.3) 09/04/21 07:00 Absolute Nucleated RBC 0.000 X10*3/uL (0.0-0.012) 09/04/21 07:00 Nucleated RBC % (auto) 0.0 /100WBC (0.0-0.2) 09/04/21 07:00 Sodium 140 mmol/L (135-145) 09/04/21 07:00 Potassium 4.5 mmol/L (3.3-5.1) 09/04/21 07:00 Chloride 107 mmol/L (96-108) 09/04/21 07:00 Carbon Dioxide 28 mmol/L (22-29) 09/04/21 07:00 Anion Gap 10 (12-20) L 09/04/21 07:00 BUN 12 mg/dL (9-16) 09/04/21 07:00 Creatinine 0.86 mg/dL (0.5-1.4) 09/04/21 07:00 Estim Creat Clear Calc 101.5 09/04/21 07:00 Estimated GFR > 60 09/04/21 07:00 Random Glucose 89 mg/dL (60-115) 09/04/21 07:00 Calcium 9.2 mg/dL (8.4-10.2) D 09/04/21 07:00 Total Bilirubin 0.4 mg/dL (0.0-1.0) 09/03/21 17:48 AST 21 U/L (5-31) 09/03/21 17:48 ALT 16 U/L (0-31) 09/03/21 17:48 Alkaline Phosphatase 128 U/L (39-117) H 09/03/21 17:48 Total Protein 7.5 g/dL (6.5-8.0) 09/03/21 17:48 Albumin 4.2 g/dL (3.5-5.0) 09/03/21 17:48 Triglycerides 44 mg/dL 09/04/21 07:00 Cholesterol 178 mg/dL 09/04/21 07:00 LDL Cholesterol, Calc 119 mg/dl 09/04/21 07:00 HDL Cholesterol 51 mg/dL 09/04/21 07:00 TSH 1.30 uIU/mL (0.32-4.0) 09/03/21 17:48 Beta HCG, Quant < 2 mIU/mL 09/03/21 17:48 Urine Color YELLOW 09/03/21 20:12 Urine Appearance HAZY 09/03/21 20:12 Urine pH 6.5 (5.0-8.0) 09/03/21 20:12 Ur Specific [place] <= 1.005 (1.005-1.025) 09/03/21 20:12 Urine Protein NEG MG/DL (NEG-TRACE) 09/03/21 20:12 Urine Glucose (UA) NEG MG/DL (NEG) 09/03/21 20:12 Urine Ketones NEG MG/DL (NEG) 09/03/21 20:12 Urine Blood TRACE (NEG) 09/03/21 20:12 Urine Nitrite NEG (NEG) 09/03/21 20:12 Ur Leukocyte Esterase NEG (NEG) 09/03/21 20:12 Urine RBC 0-2 /HPF (0) 09/03/21 20:12 Urine WBC 0-2 /HPF (0-4) 09/03/21 20:12 Ur Squamous Epith Cells 1+ /LPF 09/03/21 20:12 Amorphous Sediment TRACE /LPF 09/03/21 20:12 Urine Bacteria 1+ /LPF 09/03/21 20:12 COVID-19 ([place]) Negative (Negative) 09/03/21 21:48 COVID-19 Clin Com See Note 09/03/21 21:48 Impressions Chest X-Ray 09/03/21 17:35 IMPRESSION: Unremarkable examination. Head/Neck CTA 09/03/21 19:25 IMPRESSION: Imaging findings suspicious for a nonocclusive left vertebral artery dissection with a small pseudoaneurysm in the mid cervical V2 segment. No high-grade stenoses. Mildly beaded appearance of the mid cervical right vertebral artery which may be due to underlying fibromuscular dysplasia. Conspicuous infundibular origin of the inferolateral trunk versus 2 mm aneurysm arising from the lateral wall of the cavernous segment of the right ICA. 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 Disc-osteophyte complex with a left paracentral disc protrusion mildly impressing upon the ventral cord at the C5-C6 level. Imaging findings reported to HARMEET Campbell at 8:28 PM on 09/03/2021. Brain MRI 09/04/21 13:00 IMPRESSION: No acute intracranial process. Low-lying cerebellar tonsils which may signify a developmental Chiari I malformation or acquired idiopathic intracranial hypotension; clinically correlate. 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 Irregular caliber of the nondominant left vertebral artery better assessed on prior CT angiography, again most suspicious for a nonocclusive dissection. Small pseudoaneurysm not well correlated on MR angiography. Abnormal crescentic intramural signal within the mid cervical right vertebral artery, consistent with a nonocclusive vascular dissection. Head MRA 09/04/21 13:00 IMPRESSION: No acute intracranial process. Low-lying cerebellar tonsils which may signify a developmental Chiari I malformation or acquired idiopathic intracranial hypotension; clinically correlate. 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 Irregular caliber of the nondominant left vertebral artery better assessed on prior CT angiography, again most suspicious for a nonocclusive dissection. Small pseudoaneurysm not well correlated on MR angiography. Abnormal crescentic intramural signal within the mid cervical right vertebral artery, consistent with a nonocclusive vascular dissection. Neck MRA 09/04/21 13:00 IMPRESSION: No acute intracranial process. Low-lying cerebellar tonsils which may signify a developmental Chiari I malformation or acquired idiopathic intracranial hypotension; clinically correlate. 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 Irregular caliber of the nondominant left vertebral artery better assessed on prior CT angiography, again most suspicious for a nonocclusive dissection. Small pseudoaneurysm not well correlated on MR angiography. Abnormal crescentic intramural signal within the mid cervical right vertebral artery, consistent with a nonocclusive vascular dissection. TTE 09/05/21 Conclusions: - Normal study with no clear e/o of PFO? Discharge Plan Discharge Patient Disposition: Home, Self-Care Discharge Diagnosis: complex migraine, vertebral artery dissections, carotid artery aneurysms Referrals: Hunter Arrington MD [Primary Care Provider] - 1 Week Marshall,Longoria Adelaide, MD [Physician] - 2 Weeks Discharge Medications: New verapamil 120 mg Tablet Extended Release 120 mg PO DAILY Qty: 30 0RF Protocol: Hold for SBP/HR < HOLD for SBP < : 90 HOLD for HR < : 60 aspirin 81 mg Tablet,Delayed Release (Dr/Ec) 81 mg PO DAILY Qty: 90 0RF rlxlkfable-vbmvybhvrwcma-ewek 50-325-40 mg Tablet 1 tab PO Q4H PRN (Reason: headache) Qty: 18 0RF Continued dextroamphetamine-amphetamine [Adderall XR] 30 mg capsule,extended release 24hr 30 mg PO DAILY 30 Days Qty: 30 0RF Rx Instructions: Brand name only. Dispense as written (SALINA). [employer] verified. Partial refill upon request. ok to pickle processor after 04/11 multivitamin Tablet 1 tab PO DAILY 0RF fluticasone propionate [Flonase Allergy Relief] 50 mcg/actuation spray,suspension 1 spray intranasal Q12H PRN (Reason: Allergy Symptoms) 0RF Rx Instructions: administer into each nostril hydroxyzine pamoate 50 mg capsule 50 mg PO DAILY PRN (Reason: Anxiety) 0RF Discharge Orders: Discharge Order (Routine); Ordered 09/05/21 Ordered By: Efren Villatoro Diet: advance to usual diet Activity on Discharge: As tolerated Stand Alone Forms: Patient Portal Discharge page Care Plan Goals: control of migraines surveillance of neuroimaging findings Health Concerns: complex migraine, vertebral artery dissections, carotid artery aneurysms Plan of Treatment: migraines: identify and avoid triggers, take verapamil 120 mg daily for prevention, take Fiorciet 1 tab every 4 hours as needed for relief vertebral artery dissections: daily baby aspirin for 3 months, repeat CT angiogram of the head/neck in 3 months carotid artery aneurysms: repeat MR angiography of the brain in 3 months see Primary Care in 1 week, Neurology [Dr Olivares] in 2 weeks [facility] [address], [facility] [address] [place] [id number] Assessment: see Discharge Summary Patient Instructions: Migraine Headache (ED)
--- NOTE | 2021-09-05 11:58 | MHC.CM.PN ---
Female 31 DX Vertebral artery dissection She is discharged to home today. She has arranged for private transportation home.
== END 2021-09-05 16:45 | disposition home or self-care (01) | DRG 54 ==
LOC: HO.ED 17:11 → HO.EDOVER 22:42 → HO.IMC 09-04 15:03
PROVIDERS: Physician Assistant Medical; Admitting Provider Hospitalist; Emergency Provider Emergency Medicine; PCP Family Medicine; Visit Provider Family Medicine
DX: G43.101 Migraine with aura, not intractable, with status migrainosus (principal); I77.74 Dissection of vertebral artery; I72.0 Aneurysm of carotid artery; F90.9 Attention-deficit hyperactivity disorder, unspecified type; M54.12 Radiculopathy, cervical region; Z20.822 Contact with and (suspected) exposure to COVID-19; Z79.82 Long term (current) use of aspirin; Z79.51 Long term (current) use of inhaled steroids; Z79.899 Other long term (current) drug therapy
CPT/HCPCS: 36415; 70496; 70498; 70544; 70549; 70551; 71046; 80048; 80053; 80061; 81001; 84443; 84702; 85025; 87635; 93005; 93306; 96360; 97116; 97161; 97165; 99285; A9585; Q9967

== ENCOUNTER 2021-09-28 09:18 | Outpatient (REF) | payer OTHER, SELFPAY ==
[2021-09-28 10:22] LABS: Erythrocyte Sedimentation Rate 8 MM/HR (0-20)
[2021-09-30 14:21] LABS: CRP High Sensitivity 2.2 mg/L
== END 2021-09-28 09:19 | disposition home or self-care (01) ==
LOC: HO.LAB 09:18
PROVIDERS: PCP Family Medicine; Visit Provider Family Medicine
DX: M25.649 Stiffness of unspecified hand, not elsewhere classified (principal)
CPT/HCPCS: 36415; 85652; 86141

== ENCOUNTER 2021-11-16 07:47 | Outpatient (REF) | payer OTHER, SELFPAY ==
[2021-11-18 17:12] LABS: EBV-NA IgG Index >600.00 U/mL; EBV-VCA IgM Ab <36.00 U/mL; Herpes Simplex Type 1 IgG 5.79 index; Herpes Simplex Type 2 IgG <0.90 index; Toxoplasma IgG Antibody <7.20 IU/mL; Toxoplasma IgM Antibody <8.00 AU/mL
[2021-11-18 21:10] LABS: Cytomegalovirus Ab IgM <30.00 AU/mL
== END 2021-11-16 07:48 | disposition home or self-care (01) ==
LOC: HO.LAB 07:47
PROVIDERS: PCP Family Medicine; Visit Provider Ophthalmology
DX: Z01.84 Encounter for antibody response examination (principal); H47.10 Unspecified papilledema
CPT/HCPCS: 86611; 86644; 86645; 86664; 86665; 86695; 86696; 86777; 86778; 86787

== ENCOUNTER 2022-09-29 13:09 | Outpatient (REF) | payer OTHER, SELFPAY | END 2022-09-29 13:10 | disposition home or self-care (01) | LOC: HO.LNP 13:09 | PROVIDERS: PCP Family Medicine; Visit Provider Obstetrics & Gynecology | DX: N75.0 Cyst of Bartholin's gland (principal) | CPT/HCPCS: 56420; 87070; 87205; 99212 ==

== ENCOUNTER 2022-10-10 07:40 | Outpatient (REF) | payer OTHER, SELFPAY ==
[2022-10-10 09:10] LABS: Alanine Aminotransferase 13 U/L (0-31); Alkaline Phosphatase 108 U/L (39-117); Anion Gap 12 (12-20); Aspartate Amino Transferase 20 U/L (5-31); Bilirubin Total 0.5 mg/dL (0.0-1.0); Blood Urea Nitrogen 9 mg/dL (9-16); Calcium 9.2 mg/dL (8.4-10.2); Carbon Dioxide 24 mmol/L (22-29); Chloride 107 mmol/L (96-108); Cholesterol 159 mg/dL; Estimated Glomerular Filt Rate > 60; Glucose Fasting 89 mg/dL (60-99); HDL Cholesterol 54 mg/dL; LDL Cholesterol Calculated 89 mg/dl; Potassium 3.9 mmol/L (3.3-5.1); Sodium 139 mmol/L (135-145); Total Protein 7.1 g/dL (6.5-8.0); Triglycerides 81 mg/dL
[2022-10-10 09:18] LABS: TSH reflex Free T4 1.72 uIU/mL (0.32-4.0)
[2022-10-10 09:25] LABS: Appearance Urine Turbid; Color Urine Yellow; Glucose Urine UA Negative (Negative); Leukocyte Esterase Urine Moderate (2+) (Negative); Nitrite Urine Negative (Negative); PH 5.5 (5.0-9.0); Specific Gravity - Urine 1.025 (1.005-1.025); UMIC TRIGGER UA YES; Urine Blood Negative (Negative); Urine Ketones Negative (Negative); Urine Protein Trace mg/dL (Neg-Trace)
[2022-10-10 10:10] LABS: Bacteria Urine 4+ (None Seen); Calcium Oxalate Crystals Urine Present; Squamous Epithelial Cell Urine >20 /HPF (0-2); WBC Urine >50 /HPF (0-5)
== END 2022-10-10 07:41 | disposition home or self-care (01) ==
LOC: HO.LAB 07:40
PROVIDERS: PCP Family Medicine; Visit Provider Family Medicine
DX: Z00.00 Encounter for general adult medical examination without abnormal findings (principal)
CPT/HCPCS: 36415; 80053; 80061; 81001; 84443

== ENCOUNTER 2022-12-02 14:23 | Outpatient (AMB) | payer OTHER, SELFPAY ==
[2022-12-02 14:26] VITALS: BP 112/64; PULSE 108; O2SAT 98; BMI 20.1
--- NOTE | 2022-12-02 14:26 | A.OFFPC_ITS ---
Vital Signs 12/02/22 14:26 Height 5 ft 10 in Weight 140 lb 4 oz BMI 20.1 BP 112/64 Blood Pressure Location Lt brachial Position Sitting Pulse 108 H Pulse Source Pulse Oximeter Pulse Oximetry (%) 98 Oxygen Delivery Method Room Air Intake Visit Reasons: follow up adhd Intake Note: Patient is here to follow up on ADHD today will be leaving out of town and will be needsing 3 month supply of Adderall. Allergies No Known Allergies Allergy (Verified 12/02/22 14:31) Tobacco use date assessed: 12/02/22 Dental Screening Dental Screen Date: 12/02/22 Did you have a dental visit in the last 12 months?: Yes Did you have a dental problem in the last 6 months where you did not have access to dental care?: No Was dental information given to patient?: No HPI follow up adhd HPI Details 32 y/o female presents to f/u ADHD. She is on Adderall XR 30mg daily. She denies any issues with appetite/anxiety/sleep. [facility] Medical History ADHD Anxiety Surgical History No pertinent past surgical history Family History Father Lung cancer Mother No problems noted. Sister No problems noted. 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 Obey L. JoseAmber pearson, Mark French and colleagues, with an educational gretchen from [employer]. Review of Systems Const Denies chills, Denies fatigue, Denies fever(s), Denies headache(s) and Denies weakness ENT Denies dizziness and Denies headache(s) Card Denies chest pain, Denies lightheadedness, Denies dyspnea and Denies other (Palpitations) Resp Denies cough, Denies dyspnea, Denies wheezing and Denies other ( shortness of breath) Musc Denies numbness and Denies tingling Neuro Denies dizziness, Denies headache(s), Denies numbness, Denies tingling, Denies paresthesias and Denies weakness Psych Denies anxiety and Denies depression Endo Denies fatigue Aller/Immun Denies wheezing Physical exam (Primary Care) Vital Signs: Last Vital Signs Pulse 108 H 12/02/22 14:26 BP 112/64 12/02/22 14:26 Pulse Ox 98 12/02/22 14:26 Oxygen Delivery Method Room Air 12/02/22 14:26 BMI result Body Mass Index 20.1 Tobacco/Smoking Status: Tobacco use Status Tobacco use date assessed 12/02/22 12/02/22 14:35 Patient Tobacco Use Status Never used Tobacco 12/02/22 14:28 e-Cigarette/Vaping Use Never Used 12/02/22 14:28 Thrive Assessment: Date of Thrive Assessment Date Thrive assessed 06/26/22 12/02/22 14:28 Const General: no acute distress and well developed Nutritional Appearance: well nourished Orientation/consciousness: patient oriented x3 [facility] Head: Yes normocephalic and Yes atraumatic Eyes General: appearance normal, both eyes and all related structures Pupils: Equal, round and reactive pupils present EOM: EOMs intact bilaterally Resp Effort & Inspection: normal respiratory effort Auscultation: clear to auscultation bilaterally Cardio Rate: regular rate Rhythm: regular rhythm Heart sounds: S1 normal heart sound present, S2 normal heart sound present, no gallops, no murmurs and no rubs Neuro General: patient oriented x3 and gait normal Cranial nerves: Yes Equal, round and reactive pupils present Psych Affect: normal affect Assessment and Plan Assessment & Plan (1) Attention deficit disorder (ADD) in adult: Code(s): F98.8 - Other specified behavioral and emotional disorders with onset usually occurring in childhood and adolescence Plan: Medication is efficacious and without adverse effects such as sleep, appetite or anxiety provoking symptoms Continue current medication Patient is going to be traveling and will receive a 90 day prescription. Subsequently, will switch back to 30 day scripts. Medications: Changed From Adderall XR 30 mg (dextroamphetamine-amphetamine) Brand name only. Dispense as written (SALINA). [employer] verified. Partial refill upon request. 30 mg PO DAILY 30 days 30 caps 0RF NS To Adderall XR 30 mg (dextroamphetamine-amphetamine) Brand name only. Dispense as written (SALINA). [employer] verified. Partial ref ill upon request. One-Time request for 90-day script as patient is going abroad. Then to resume monthly. Will call Pharmacy. 30 mg PO DAILY 90 days 90 caps 0RF NS Coding Level of Care Code Est Pt Level 3 (20936) Diagnoses Attention deficit disorder (ADD) in adult F98.8
== END 2022-12-02 14:52 | disposition home or self-care (01) ==
PROVIDERS: PCP Family Medicine; Visit Provider Family Medicine
DX: F98.8 Other specified behavioral and emotional disorders with onset usually occurring in childhood and adolescence (principal)
CPT/HCPCS: 99213

== ENCOUNTER 2023-02-12 14:01 | Outpatient (AMB) | payer OTHER, SELFPAY ==
--- NOTE | 2023-02-12 14:04 | MHC.OFFVIS ---
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 No complaints. Last Pap/HPV was negative in 12/15 [facility] Medical History ADHD Anxiety Surgical History No pertinent past surgical history Family History Father Lung cancer Mother No problems noted. Sister No problems noted. 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 Current occupational exposures/hazards: No Sexual orientation: Straight/Heterosexual Gender identity: Female Cognitive needs: No Hearing needs: No Vision needs: No Female Reproductive History Menstrual Age of Menarche: 12 Date of last menstrual period: 01/15/23 Date of last pap smear: 12/14/20 Review of Systems Const All systems reviewed & are unremarkable except as noted in HPI and below Card Reports as per HPI Resp Reports as per HPI GI Reports as per HPI and Reports no additional complaints Reports as per HPI Physical Exam Vital Signs: Last Vital Signs BP 118/66 02/12/23 14:08 BMI result Body Mass Index 20.2 Const General: cooperative, healthy appearing and comfortable Chest Chest palpation & inspection: normal inspection of the chest and normal palpation of entire chest wall Breast/axilla inspection: normal inspection of the breasts and normal inspection of the axillae Breast/axilla palpation: normal palpation of the breasts, normal palpation of the axillae and no axillary lymphadenopathy Resp Effort & Inspection: normal respiratory effort Auscultation: clear to auscultation bilaterally Percussion: percussion normal Cardio Palpation: normal PMI Rate: regular rate Rhythm: regular rhythm Heart sounds: no murmurs and no rubs Peripheral pulses: Peripheral pulses 2+ throughout GI Inspection: Yes normal to inspection Palpation (GI): Soft to palpation, nontender, no guarding, not rigid and No hepatosplenomegaly present Percussion: Yes normal to percussion Auscultation: normal bowel sounds Rectal Exam - Female: deferred General: Yes bladder normal to palpation External Female Exam: No lesion Speculum Exam - Vagina: normal appearance of the vagina, normal palpation, normal vaginal discharge and not erythematous Speculum Exam - Cervix: normal appearance of the cervix and normal palpation Bimanual exam- vagina & uterus: normal bimanual exam, normal palpation, uterine size normal, bladder normal to palpation, consistency normal and normal palpation Bimanual Exam- Adnexa, other: normal adnexae, no masses and no tenderness Assessment & Plan Assessment & Plan (1) Well woman exam: Code(s): Z01.419 - Encounter for gynecological examination (general) (routine) without abnormal findings Plan: Cotesting not indicated this year. Counseled the patient about the recommended dietary allowance of 1000 mg of Calcium & 600 IU of vitamin D. The patient was instructed to perform monthly self-breast exams and to schedule an annual exam in a year; All questions answered and the patient verbalized understanding. Instructed the patient to schedule annual exam in a year Coding Level of Care Code Est Pt Prev Care 18-39y(85219) Diagnoses Well woman exam Z01.419
[2023-02-12 14:08] VITALS: BP 118/66; BMI 20.2
== END 2023-02-12 14:41 | disposition home or self-care (01) ==
LOC: HO.HWS 14:01
PROVIDERS: PCP Family Medicine; Visit Provider Obstetrics & Gynecology
DX: Z01.419 Encounter for gynecological examination (general) (routine) without abnormal findings (principal)
CPT/HCPCS: 99395

== ENCOUNTER → 2023-02-12 14:01 | Outpatient (BNVA) | payer OTHER, SELFPAY | PROVIDERS: PCP Family Medicine; Visit Provider Obstetrics & Gynecology | DX: Z01.419 Encounter for gynecological examination (general) (routine) without abnormal findings (principal) | CPT/HCPCS: 99395 ==

== ENCOUNTER 2023-03-04 14:24 | Outpatient (AMB) | payer OTHER, SELFPAY ==
[2023-03-04 14:27] VITALS: BP 110/68; PULSE 91; O2SAT 98; BMI 21.1
--- NOTE | 2023-03-04 14:27 | A.OFFPC_ITS ---
Vital Signs 03/04/23 14:27 Height 5 ft 10 in Weight 147 lb 6 oz BMI 21.1 BP 110/68 Blood Pressure Location Lt brachial Position Sitting Pulse 91 Pulse Source Pulse Oximeter Pulse Oximetry (%) 98 Oxygen Delivery Method Room Air Intake Visit Reasons: follow up adhd Intake Note: Patient is here to follow up on ADHD. Allergies No Known Allergies Allergy (Verified 03/04/23 14:31) Tobacco use date assessed: 03/04/23 HPI follow up adhd HPI Details 32 y/o female presents to f/u ADHD. She is on Adderall 30mg daily. Pt reports medication has helped her concentration but did note appetite issues and would like to trial a lower dose. Pt reports some ear discomfort. She does have some mild wax impaction. [facility] Medical History ADHD Anxiety Surgical History No pertinent past surgical history Family History Father Lung cancer Mother No problems noted. Sister No problems noted. 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 Obey Garcia, Amber Mane, Mark French and colleagues, with an educational gretchen from [employer]. Review of Systems Const Denies chills, Denies fatigue, Denies fever(s), Denies headache(s) and Denies weakness ENT Denies dizziness and Denies headache(s) Card Denies chest pain, Denies lightheadedness, Denies dyspnea and Denies other (Palpitations) Resp Denies cough, Denies dyspnea, Denies wheezing and Denies other ( shortness of breath) Musc Denies numbness and Denies tingling Neuro Denies dizziness, Denies headache(s), Denies numbness, Denies tingling, Denies paresthesias and Denies weakness Psych Denies anxiety and Denies depression Endo Denies fatigue Aller/Immun Denies wheezing Physical exam (Primary Care) Vital Signs: Last Vital Signs Pulse 91 03/04/23 14:27 BP 110/68 03/04/23 14:27 Pulse Ox 98 03/04/23 14:27 Oxygen Delivery Method Room Air 03/04/23 14:27 BMI result Body Mass Index 21.1 Tobacco/Smoking Status: Tobacco use Status Tobacco use date assessed 03/04/23 03/04/23 14:32 Patient Tobacco Use Status Never used Tobacco 03/04/23 14:32 e-Cigarette/Vaping Use Never Used 03/04/23 14:32 Thrive Assessment: Date of Thrive Assessment Date Thrive assessed 06/26/22 03/04/23 14:32 Const General: no acute distress and well developed Nutritional Appearance: well nourished Orientation/consciousness: [facility]: Yes normocephalic and Yes atraumatic Eyes General: appearance normal, both eyes and all related structures Pupils: Equal, round and reactive pupils present EOM: EOMs intact bilaterally Resp Effort & Inspection: normal respiratory effort Auscultation: clear to auscultation bilaterally Cardio Rate: regular rate Rhythm: regular rhythm Heart sounds: S1 normal heart sound present, S2 normal heart sound present, no gallops, no murmurs and no rubs Neuro General: patient oriented x3 and gait normal Cranial nerves: Yes Equal, round and reactive pupils present Psych Affect: normal affect Assessment and Plan Assessment & Plan (1) Attention deficit disorder (ADD) in adult: Code(s): F98.8 - Other specified behavioral and emotional disorders with onset usually occurring in childhood and adolescence Plan: Patient?had?run?out?of?medication?while?she?was?on?vacation?because?she?had?diff iculties?getting?a?refill?while?she?was?away. During?this?time,?she?weaned?off?the?med?and?noted?that?her?appetite?was?signifi cantly?improved?without?it. She?would?like?to?try?a?lower?dose?and?if?that?i s?not?helping?she?may?want?to?consider?discontinuing?it?altogether?for?now. Decrease?Adderall?XR?30?mg?to?Adderall?XR?10?mg?daily (2) Cerumen debris on tympanic membrane: Code(s): H61.20 - Impacted cerumen, unspecified ear Plan: Mild?cerumen?impaction She?can?use?Debrox?drops?OTC Medications: New dextroamphetamine-amphetamine 10 mg ER (Adderall XR) Partial Fill upon patient request. 10 mg PO QAM 30 days 30 caps 0RF Discontinued Adderall XR 30 mg (dextroamphetamine-amphetamine) Brand name only. Dispense as written ([facility]). VastPat verified. Partial refill upon request. Discontinued Reason: Doctor's Order 30 mg PO DAILY 30 days 30 caps 0RF NS Coding Level of Care Code Est Pt Level 3 (34074) Diagnoses Attention deficit disorder (ADD) in adult F98.8 Cerumen debris on tympanic membrane H61.20
== END 2023-03-04 15:12 | disposition home or self-care (01) ==
PROVIDERS: PCP Family Medicine; Visit Provider Family Medicine
DX: F98.8 Other specified behavioral and emotional disorders with onset usually occurring in childhood and adolescence (principal); H61.20 Impacted cerumen, unspecified ear
CPT/HCPCS: 99213

== ENCOUNTER 2023-06-03 14:31 | Outpatient (AMB) | payer OTHER, SELFPAY ==
[2023-06-03 14:37] VITALS: BP 112/64; PULSE 90; O2SAT 99; BMI 21.7
--- NOTE | 2023-06-03 14:37 | MHC.PC.OV ---
Vital Signs 06/03/23 14:37 Height 5 ft 10 in Weight 151 lb 4 oz BMI 21.7 BP 112/64 Blood Pressure Location Lt brachial Position Sitting Pulse 90 Pulse Source Pulse Oximeter Pulse Oximetry (%) 99 Oxygen Delivery Method Room Air Intake Visit Reasons: follow up adhd Intake Note: Patient is here to follow up on ADHD, she had injury to left foot, fell and landed on top of her toes last night, would like to have it checked out. Patient would like to discuss her ADderall, losing appetite. Allergies No Known Allergies Allergy (Verified 06/03/23 14:40) Tobacco use date assessed: 03/04/23 Dental Screening Dental Screen Date: 06/03/23 Did you have a dental visit in the last 12 months?: Yes Did you have a dental problem in the last 6 months where you did not have access to dental care?: No Was dental information given to patient?: Patient has dentist HPI follow up adhd HPI Details 32 y/o female presents to f/u ADHD. She is on Adderall 10mg. Pt reports L foot injury after falling and landing on top of her toes last night. Pt reports it has helped with the focus but it did cut back on her appetite, which she expresses worry about as she states she does love food. [facility] Medical History ADHD Anxiety Surgical History No pertinent past surgical history Family History Father Lung cancer Mother No problems noted. Sister No problems noted. 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 1. Little interest or pleasure in doing things: not at all 2. Feeling down, depressed, or hopeless: not at all 3. Trouble falling or staying asleep, or sleeping too much: not at all 4. Feeling tired or having little energy: not at all 5. Poor appetite or overeating: not at all 6. Feeling bad about yourself - or that you are a failure or have let yourself or your family down: not at all 7. Trouble concentrating on things, such as reading the newspaper or watching television: not at all 8. Moving or speaking so slowly that other people could have noticed. Or the opposite - being so fidgety or restless that you have been moving around a lot more than usual: not at all 9. Thoughts that you would be better off or of hurting yourself in some way: not at all Total score: 0 Source: Developed by Drs. Obey Garcia, Amber Mane, Mark French and colleagues, with an educational gretchen from [employer]. Thrive Questionnaire Date Thrive assessed: 06/03/23 I am a: Patient What is your living situation today?: I have a steady place to live Within the past 12 months, did the food you bought not last and you didn't have the money to get more?: Never true Within the past 12 months, did you worry whether your food would run out before you got money to buy more?: Never true Do you have trouble paying for medicines?: No Do you have trouble getting transportation to medical appointments?: No Do you have trouble paying your heating and electricity bill?: No Do you have trouble taking care of your child, family member or friend?: No Do you have trouble with day-to-day activities such as bathing, preparing meals, shopping, managing finances, etc.?: No Are you currently unemployed and looking for a job?: No Are you interested in more education?: No THRIVE Score: 0 AUDIT C Alcohol Use Questionnaire (AUDIT-C) 1. How often do you have a drink containing alcohol?: Monthly or less 2. How many drinks containing alcohol do you have on a typical day when you are drinking?: 1 or 2 3. How often do you have six or more drinks on one occasion?: Never Total Score: 1 JJ-7 AMB Questionnaire JJ-7 Date JJ - 7 assessed: 06/03/23 Feeling nervous, anxious, or on edge: 0 = Not at all Not being able to stop or control worryin = Not at all Worrying too much about different things: 0 = Not at all Trouble relaxin = Not at all Being so restless that it is hard to sit still: 0 = Not at all Becoming easily annoyed or irritable: 0 = Not at all Feeling afraid as if something awful might happen: 0 = Not at all Total JJ-7 score (0-4 normal; 5-9 mild; 10-14 moderate; 15-21 severe): 0 Source: Developed by Drs. Obey Garcia, Amber Mane, Mark French and colleagues, with an educational gretchen from [employer]. Physical exam (Primary Care) Vital Signs: Last Vital Signs Pulse 90 06/03/23 14:37 BP 112/64 06/03/23 14:37 Pulse Ox 99 06/03/23 14:37 Oxygen Delivery Method Room Air 06/03/23 14:37 BMI result Body Mass Index 21.7 Tobacco/Smoking Status: Tobacco use Status Tobacco use date assessed 03/04/23 06/03/23 14:41 Patient Tobacco Use Status Never used Tobacco 06/03/23 14:41 e-Cigarette/Vaping Use Never Used 06/03/23 14:41 PHQ-9: PHQ-9 Score PHQ-9: Total score 0 06/03/23 14:43 Thrive Assessment: Date of Thrive Assessment Date Thrive assessed 06/26/22 06/03/23 14:41 Assessment and Plan Assessment & Plan (1) Attention deficit disorder (ADD) in adult: Code(s): F98.8 - Other specified behavioral and emotional disorders with onset usually occurring in childhood and adolescence Plan: Patient?notes?appetite?changes?which?she?attributes?to?Adderall. She?would?like?to?try?another?medication Switching?to?Vyvanse Will?follow-up?in?a?month (2) Toe pain: Code(s): M79.676 - Pain in unspecified toe(s) Plan: Pain?at?left?1st?and?2nd?toe?with?swelling?and?discoloration?after?injury. 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 Due?to?re-evaluate?with?follow-up?CT?angiogram - ordered Orders: Orders Lipid Panel Today Z00.00 - Encounter for general adult medical examination without abnormal findings Microalbumin, Random (w Creat) Today I10 - Essential (primary) hypertension TSH reflex Free T4 Today Z00.00 - Encounter for general adult medical examination without abnormal findings UA and rflx microscopic Today Z00.00 - Encounter for general adult medical examination without abnormal findings Complete Blood Count Auto Diff Today Z00.00 - Encounter for general adult medical examination without abnormal findings Comprehensive Lindsay. Panel Fast Today Z00.00 - Encounter for general adult medical examination without abnormal findings CT angio head neck Today I77.74 - Dissection of vertebral artery Comprehensive Met. Panel Today I77.74 - Dissection of vertebral artery XR foot LT min 3V Today M79.676 - Pain in unspecified toe(s) Medications: New lisdexamfetamine (Vyvanse) Partial Fill upon patient request. 20 mg PO QAM 30 caps 0RF 30 days Discontinued dextroamphetamine-amphetamine 10 mg ER (Adderall XR) Partial Fill upon patient request. Discontinued Reason: Doctor's Order 10 mg PO QAM 30 caps 0RF 30 days Coding Level of Care Code Est Pt Level 3 (57805) Diagnoses Attention deficit disorder (ADD) in adult F98.8 Toe pain M79.676 Vertebral artery dissection I77.74
== END 2023-06-03 15:04 | disposition home or self-care (01) ==
PROVIDERS: PCP Family Medicine; Visit Provider Family Medicine
DX: F98.8 Other specified behavioral and emotional disorders with onset usually occurring in childhood and adolescence (principal); M79.675 Pain in left toe(s); I77.74 Dissection of vertebral artery
CPT/HCPCS: 99213

== ENCOUNTER 2023-06-03 15:32 | Outpatient (REF) | payer OTHER, SELFPAY ==
--- NOTE | ~2023-06-03 | XR_ITS ---
EXAMINATION: XR FOOT, LEFT CLINICAL INFORMATION: Pain in toes COMPARISON: None available. TECHNIQUE: AP, lateral, and oblique views of the left foot. FINDINGS: The bones and soft tissues are normal. No fracture. Alignment is anatomic. Joint spaces are maintained. XR/XR foot LT min 3V IMPRESSION: Normal left foot.
== END 2023-06-03 15:33 | disposition home or self-care (01) ==
LOC: HO.XRAY 15:32
PROVIDERS: PCP Family Medicine; Visit Provider Family Medicine
DX: M79.672 Pain in left foot (principal)
CPT/HCPCS: 73630

== ENCOUNTER 2023-07-17 07:50 | Outpatient (REF) | payer OTHER, SELFPAY ==
--- NOTE | ~2023-07-17 | CT_ITS ---
EXAMINATION: CT ANGIOGRAM HEAD AND NECK CLINICAL INFORMATION: 33-year-old undergoing follow up for vertebral artery dissection. COMPARISON: 09/03/2021 CT angiogram. TECHNIQUE: Volumetric CT angiography of the head and neck was performed from the upper thorax to the skull vertex utilizing the bolus intravenous administration of 70 mL of Omnipaque 350 contrast material. 2D multiplanar reconstructions and 3D MIP renderings were performed either on an independent workstation or at the CT console workstation. Precontrast and delayed postcontrast imaging of the brain was also performed. The degree of stenosis determined by NASCET criteria. This CT examination was performed using dose optimization techniques as appropriate, variously including the following: *Automated exposure control *Adjustment of mA and/or kV according to patient size (this includes techniques or standardized protocols for targeted exams where dose is matched to indication/reason for exam; i.e. extremities or head) *Use of iterative reconstruction technique DLP: 2529 mGy-cm FINDINGS: CT HEAD: The brain parenchyma is normal in morphology and attenuation.?La-white matter interface is preserved.?No hemorrhage, infarction, extra-axial fluid collections, space-occupying process or mass effect are identified. The ventricular system and subarachnoid spaces are within normal limits without hydrocephalus, stable in appearance. No intracranial mass lesions or pathologic intracranial enhancement are identified. The visualized orbital soft tissue structures are within normal limits. The bony structures appear intact and the visualized airspaces are unopacified with a grossly normal appearance to the extra-cranial soft tissue structures. Limited assessment of the soft tissue neck structures. There is a 1.5 x 0.6 cm left submandibular space lymph node which is minimally increased in size from the previous exam. Other bilateral submandibular space lymph nodes are normal in size and stable. Small submental lymph nodes are stable. The visualized upper thorax demonstrates no acute process. CTA NECK: There is a three-vessel arch configuration. Dense contrast material within the left innominate vein partially obscures the origins of the left common carotid artery and innominate artery on the current study. No significant stenosis is suspected allowing for artifacts. Right subclavian artery is patent and normal in caliber. Proximal left subclavian artery patent and normal in caliber. Left vertebral artery origin is patent and normal in caliber. Note that the left vertebral artery is nondominant compared to the right. There has been an improvement in the caliber of the left vertebral artery throughout the neck since the previous study, particularly at the level of the V3 segment. The right vertebral artery is dominant. Redemonstrated is a slightly beaded appearance with luminal irregularity of the V2 segment of the right vertebral artery without significant focal stenosis or segmental occlusion. Previously suspected dissection flap of the V3 segment of the left vertebral artery is no longer identified, but there is some luminal irregularity at this segment as well. The common carotid arteries are smoothly contoured and normal in caliber, with smoothly contoured carotid bifurcations, which are normal in caliber, with smooth contours to the external and internal carotid arteries bilaterally. There is marked tortuosity of the high right cervical ICA, unchanged in appearance. CTA HEAD: The intradural left vertebral artery is diminutive in caliber. Allowing for artifacts, there is no significant interval change in the appearance of the left intradural vertebral artery. The intradural right vertebral artery is dominant, smoothly contoured and normal in caliber. The basilar artery is patent and normal in caliber. The intracranial ICAs are patent and normal in caliber. No interval change. 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 There is a 2 mm aneurysm arising along the medial wall of the paraclinoid segment of the right ICA as well, stable in appearance. There is slight outpouching of contrast along the lateral wall of the proximal left cavernous ICA which is unchanged, suggesting a 2 mm wide necked sessile aneurysm. The A1 segments are patent, with an azygos A2 segment again noted. The M1 segments, MCA bifurcations and M2 branches appear within normal limits with a normal appearance to the posterior cerebral arteries. There is a origin of the right MECH[employer]ISM INSPECTOR with a hypoplastic right P1 segment, which is an anatomic variant. There is a partially hypoplastic left P1 segment as well with a prominent left P-comm and a stable infundibulum at the origin of the left P-comm. Disc space height loss and spondylosis at C5-C6 similar to the previous exam. CT/CT angio head neck IMPRESSION: 1. Improved caliber of the left vertebral artery throughout the neck with resolution of the previously noted dissection flap in the V3 segment of the left vertebral artery and resolution of suspected small pseudoaneurysm in the left V2 segment. 2. Slightly irregular/beaded appearance to the V2 segment of the right vertebral artery is again noted without focal stenosis or segmental occlusion, possibly fibromuscular dysplasia. 3. 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 4. No acute intracranial process. 5. Minimal increase in size of a slightly enlarged left submandibular space lymph node. Follow up as per clinical indications.
[2023-07-17] MEDS: iohexoL 350 MG/ML 100 ML INFUS..BTL 70 ML IV (09:30)
== END 2023-07-17 07:51 | disposition home or self-care (01) ==
LOC: HO.CT 07:50
PROVIDERS: PCP Family Medicine; Visit Provider Family Medicine
DX: I77.74 Dissection of vertebral artery (principal)
CPT/HCPCS: 70496; 70498; Q9967

== ENCOUNTER 2023-08-07 13:27 | Outpatient (AMB) | payer OTHER, SELFPAY ==
--- NOTE | 2023-08-07 13:42 | A.OFFPC_ITS ---
Vital Signs 08/07/23 13:43 Height 5 ft 10 in Weight 153 lb 2 oz BMI 22.0 BP 112/62 Blood Pressure Location Lt brachial Position Sitting Pulse 75 Pulse Source Pulse Oximeter Pulse Oximetry (%) 99 Oxygen Delivery Method Room Air Intake Visit Reasons: f/u CT scan Intake Note: Patient is here to follow up on CT scan, and Vyvance refill. Allergies No Known Allergies Allergy (Verified 06/03/23 14:40) Tobacco use date assessed: 03/04/23 Dental Screening Dental Screen Date: 06/03/23 HPI f/u CT scan HPI Details 33 y/o female presents to f/u ADHD and C T angio head and neck. Hx of vertebral artery dissection. Pt notes vyvanse has been helping. Mild decrease in appetite. She reports change in insurance and had just started vyvanse last week. [facility] Medical History ADHD Anxiety Surgical History No pertinent past surgical history Family History Father Lung cancer Mother No problems noted. Sister No problems noted. 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 Obey Garcia, Amber Mane, Mark French and colleagues, with an educational gretchen from [employer]. Review of Systems Const Denies chills, Denies fatigue, Denies fever(s), Denies headache(s) and Denies weakness ENT Denies dizziness and Denies headache(s) Card Denies chest pain, Denies lightheadedness, Denies dyspnea and Denies other (Palpitations) Resp Denies cough, Denies dyspnea, Denies wheezing and Denies other ( shortness of breath) Musc Denies numbness and Denies tingling Neuro Denies dizziness, Denies headache(s), Denies numbness, Denies tingling, Denies paresthesias and Denies weakness Psych Denies anxiety and Denies depression Endo Denies fatigue Aller/Immun Denies wheezing Physical exam (Primary Care) Vital Signs: Last Vital Signs Pulse 75 08/07/23 13:43 BP 112/62 08/07/23 13:43 Pulse Ox 99 08/07/23 13:43 Oxygen Delivery Method Room Air 08/07/23 13:43 BMI result Body Mass Index 22.0 Tobacco/Smoking Status: Tobacco use Status Tobacco use date assessed 03/04/23 08/07/23 13:45 Patient Tobacco Use Status Never used Tobacco 08/07/23 13:45 e-Cigarette/Vaping Use Never Used 08/07/23 13:45 Thrive Assessment: Date of Thrive Assessment Date Thrive assessed 06/03/23 08/07/23 13:45 Const General: no acute distress and well developed Nutritional Appearance: well nourished Orientation/consciousness: patient oriented x3 [facility]: Yes normocephalic and Yes atraumatic Eyes General: appearance normal, both eyes and all related structures Pupils: Equal, round and reactive pupils present EOM: EOMs intact bilaterally Resp Effort & Inspection: normal respiratory effort Auscultation: clear to auscultation bilaterally Cardio Rate: regular rate Rhythm: regular rhythm Heart sounds: S1 normal heart sound present, S2 normal heart sound present, no gallops, no murmurs and no rubs Neuro General: patient oriented x3 and gait normal Cranial nerves: Yes Equal, round and reactive pupils present Psych Affect: normal affect Assessment and Plan Assessment & Plan (1) Dissection of vertebral artery: Code(s): I77.74 - Dissection of vertebral artery Plan: Resolution?of?dissection?and?overall?stability?of?ICA?aneurysms. Will?continue?to?follow?with?repeat?CT?in?2?years. (2) Attention deficit disorder (ADD) in adult: Code(s): F98.8 - Other specified behavioral and emotional disorders with onset usually occurring in childhood and adolescence Plan: Just?started?Vyvanse Tolerating?well Mild?decrease?in?appetite?and?she?will?work?at?maintaining?good?caloric?intake. Continue?current?medication Coding Level of Care Code Est Pt Level 3 (74556) Diagnoses Dissection of vertebral artery I77.74 Attention deficit disorder (ADD) in adult F98.8
[2023-08-07 13:43] VITALS: BP 112/62; PULSE 75; O2SAT 99; BMI 22.0
== END 2023-08-07 14:02 | disposition home or self-care (01) ==
PROVIDERS: PCP Family Medicine; Visit Provider Family Medicine
DX: I77.74 Dissection of vertebral artery (principal); F98.8 Other specified behavioral and emotional disorders with onset usually occurring in childhood and adolescence
CPT/HCPCS: 99213

== ENCOUNTER 2023-11-30 13:44 | Outpatient (AMB) | payer OTHER, SELFPAY ==
--- NOTE | 2023-11-30 14:03 | A.OFFPC_ITS ---
Vital Signs 11/30/23 14:08 Weight 148 lb 8 oz BP 100/70 Blood Pressure Location Lt brachial Position Sitting Respiration 18 Pulse 88 Pulse Source Pulse Oximeter Temp 98 F Temp Source Tympanic Pulse Oximetry (%) 98 Oxygen Delivery Method Room Air Intake Visit Reasons: CPE with f/u labs and health maint. 30 mins Intake Note: follow up for labs and possible physical and medication follow up Is last menstrual period known: Yes Post menopausal: No Patient : No Allergies No Known Allergies Allergy (Verified 11/30/23 14:04) Medication List - Last Reconciled 11/30/23 by Hunter Arrington MD hydroxyzine HCl 10 mg PO BEDTIME lisdexamfetamine (Vyvanse) 20 mg PO QAM 30 days Tobacco use date assessed: 03/04/23 Dental Screening Dental Screen Date: 06/03/23 HPI CPE with f/u labs and health maint. 30 mins HPI Details 33 y/o female presents for an extended e xam with f/u labs and health maintenance. No recent labs to review. Denies any changes in mood/sleep/appetite. She notes vyvanse has been working well. She follows up with [employer] Consultant Eduar Chavira for her pap smear. [facility] Medical History ADHD Anxiety Surgical History No pertinent past surgical history Family History Father Lung cancer Mother No problems noted. Sister No problems noted. 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 1. Little interest or pleasure in doing things: not at all 2. Feeling down, depressed, or hopeless: not at all 3. Trouble falling or staying asleep, or sleeping too much: not at all 4. Feeling tired or having little energy: not at all 5. Poor appetite or overeating: not at all 6. Feeling bad about yourself - or that you are a failure or have let yourself or your family down: not at all 7. Trouble concentrating on things, such as reading the newspaper or watching television: not at all 8. Moving or speaking so slowly that other people could have noticed. Or the opposite - being so fidgety or restless that you have been moving around a lot more than usual: not at all 9. Thoughts that you would be better off or of hurting yourself in some way: not at all Total score: 0 Depression Screening Interpretation: Negative Depression Screening Done: Yes 05162 - PHQ-9 Billing: Yes Source: Developed by Drs. Obey Garcia, Amber Mane, Mark French and colleagues, with an educational gretchen from [place]. Thrive Questionnaire Date Thrive assessed: 11/30/23 I am a: Patient What is your living situation today?: I have a steady place to live Within the past 12 months, did the food you bought not last and you didn't have the money to get more?: Never true Within the past 12 months, did you worry whether your food would run out before you got money to buy more?: Never true Do you have trouble paying for medicines?: No Do you have trouble getting transportation to medical appointments?: No Do you have trouble paying your heating and electricity bill?: No Do you have trouble taking care of your child, family member or friend?: No Do you have trouble with day-to-day activities such as bathing, preparing meals, shopping, managing finances, etc.?: No Are you currently unemployed and looking for a job?: No Are you interested in more education?: No Please select the resources that you would like help with: None Currently or been in a relationship where the following occur: No concerns reported THRIVE Score: 0 AUDIT C Alcohol Use Questionnaire (AUDIT-C) 1. How often do you have a drink containing alcohol?: Monthly or less 2. How many drinks containing alcohol do you have on a typical day when you are drinking?: 1 or 2 3. How often do you have six or more drinks on one occasion?: Less than monthly Total Score: 2 Score Reviewed/Action Taken: Yes JJ-7 AMB Questionnaire JJ-7 Date JJ - 7 assessed: 11/30/23 Feeling nervous, anxious, or on edge: 1 = Several days Not being able to stop or control worryin = Not at all Worrying too much about different things: 0 = Not at all Trouble relaxin = Not at all Being so restless that it is hard to sit still: 0 = Not at all Becoming easily annoyed or irritable: 0 = Not at all Feeling afraid as if something awful might happen: 0 = Not at all Total JJ-7 score (0-4 normal; 5-9 mild; 10-14 moderate; 15-21 severe): 1 Source: Developed by Drs. Obey Garcia, Amber Mane, Mark French and colleagues, with an educational gretchen from [place]. JJ-7 Assessment Billing JJ-7 Assessment Tool: JJ-7 Assessment [id number] Review of Systems Const Denies chills, Denies fatigue, Denies fever(s), Denies headache(s) and Denies weakness Eyes Denies change in vision ENT Denies dizziness, Denies headache(s), Denies hearing loss, Denies nasal congestion, Denies sinus pain, Denies sinus pressure and Denies sore throat Card Denies chest pain, Denies lightheadedness, Denies dyspnea and Denies other (palpitations) Resp Denies cough, Denies dyspnea and Denies wheezing GI Denies abdominal pain, Denies melena, Denies hematochezia, Denies change in bowel habits, Denies dyspepsia and Denies nausea Denies hematuria and Denies dysuria Musc Denies abnormal gait, Denies myalgias, Denies arthralgias, Denies numbness and Denies tingling Skin/Breast Denies rash, Denies unusual bruising and Denies wounds Neuro Denies abnormal gait, Denies dizziness, Denies headache(s), Denies memory loss, Denies numbness, Denies Sensory deficit (Neuro), Denies tingling and Denies weakness Psych Denies anxiety, Denies depression and Denies memory loss Endo Denies cold intolerance, Denies fatigue, Denies heat intolerance, Denies polydipsia and Denies polyuria Rudi/Lymph Denies easy bleeding and Denies easy bruising Aller/Immun Denies wheezing Physical exam (Primary Care) Vital Signs: Last Vital Signs Temp 98 F 11/30/23 14:08 Pulse 88 11/30/23 14:08 Resp 18 11/30/23 14:08 BP 100/70 11/30/23 14:08 Pulse Ox 98 11/30/23 14:08 Oxygen Delivery Method Room Air 11/30/23 14:08 Tobacco/Smoking Status: Tobacco use Status Tobacco use date assessed 03/04/23 11/30/23 14:11 Patient Tobacco Use Status Never used Tobacco 11/30/23 14:11 e-Cigarette/Vaping Use Never Used 11/30/23 14:11 PHQ-9: PHQ-9 Score PHQ-9: Total score 0 11/30/23 14:15 Depression Screening Interpretation: Negative Thrive Assessment: Date of Thrive Assessment Date Thrive assessed 11/30/23 11/30/23 14:11 Currently or been in a relationship where the following occur: No concerns reported Const General: no acute distress, well developed, alert and awake Nutritional Appearance: well nourished Orientation/consciousness: patient oriented x3 HENMT Head: Yes normocephalic and Yes atraumatic Ears: hearing grossly normal bilaterally and TM's normal bilaterally General nose exam: Normal external nose present and Normal nares present Mouth: Normal oral and palatal mucosa present and moist mucous membranes Teeth and gingiva: dentition normal Throat: Yes posterior oropharynx normal Eyes General: appearance normal, both eyes and all related structures Pupils: Equal, round and reactive pupils present and Pupil accommodation reflex normal EOM: EOMs intact bilaterally Neck Neck: Yes normal visual inspection, Yes no lymphadenopathy and Yes trachea midline Thyroid: Thyroid normal Carotids: no bruits Lymphatic: no lymphadenopathy noted Chest Chest palpation & inspection: normal inspection of the chest Resp Effort & Inspection: normal respiratory effort Auscultation: clear to auscultation bilaterally Cardio Rate: regular rate Rhythm: regular rhythm Heart sounds: S1 normal heart sound present, S2 normal heart sound present, no gallops, no murmurs and no rubs Bruits: no abdominal aortic bruits and no carotid bruits GI Palpation (GI): No Abdominal aortic bruit present, Soft to palpation, nontender, No hepatosplenomegaly present and No Rebound tenderness present Auscultation: normal bowel sounds General: Yes no CVA tenderness Back/Spine/Pelvis Back: no CVA tenderness Cervical Spine: cervical ROM normal and No Cervical spine tenderness Thoracic/Lumbar Spine: thoraco-lumbar ROM normal, No pain with thoraco-lumbar ROM, No thoracic spinal tenderness and No lumbar spinal tenderness Skin Lesions: no lesions Rashes: no rashes Trauma: no lacerations or abrasions Wounds: no wounds Nails: normal Neuro General: patient oriented x3 Cranial nerves: Yes Equal, round and reactive pupils present Cognition (Neuro): normal cognition Gait exam (Neuro): Normal gait present Motor exam (neuro): 5/5 motor strength present throughout Sensory Exam: No Sensory deficit (Neuro) Deep tendon reflexes (DTR's): Right patellar reflex intensity grade: 2+ and Left patellar reflex intensity grade: 2+ Extrem General: Yes normal to inspection and No edema Psych Appearance: grossly normal Affect: normal affect Attitude: cooperative Thought process: Normal thought process present Assessment and Plan Assessment & Plan (1) Attention deficit disorder (ADD) in adult: Code(s): F98.8 - Other specified behavioral and emotional disorders with onset usually occurring in childhood and adolescence Plan: 33-year-old?female?with?ADHD?and prior?Adderall?use?which?was?not?as?effective?and?was?giving?her?problems?with?a ppetite. Switched?her?to?Vyvanse?she?is?doing?much?better?with?this. 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 (4) Adult general medical exam: Code(s): Z00.00 - Encounter for general adult medical examination without abnormal findings Plan: 33-year-old?female?presents?for?an?extended?exam Encouraged?healthy?diet?with?active?lifestyle?and?plenty?of?exercise Orders: Orders Lipid Panel Today Z00.00 - Encounter for general adult medical examination without abnormal findings Microalbumin, Random (w Creat) Today I10 - Essential (primary) hypertension TSH reflex Free T4 Today Z00.00 - Encounter for general adult medical examination without abnormal findings Comprehensive [place]. Panel Fast Today Z00.00 - Encounter for general adult medical examination without abnormal findings Complete Blood Count Auto Diff Today Z00.00 - Encounter for general adult medical examination without abnormal findings UA and rflx microscopic Today Z00.00 - Encounter for general adult medical examination without abnormal findings Medications: Refilled lisdexamfetamine (Vyvanse) Partial Fill upon patient request. 20 mg PO QAM 30 days 30 caps 0RF Coding Level of Care Code Est Pt Level 4 (99637) Diagnoses Attention deficit disorder (ADD) in adult F98.8 Screening for cervical cancer Z12.4 Vertebral artery dissection I77.74 Adult general medical exam Z00.00 Additional Codes JJ-7 Assessment Billing - JJ-7 Assessment Tool: JJ-7 Assessment [id number] ([id number])
[2023-11-30 14:08] VITALS: BP 100/70; PULSE 88; RESP 18; TEMP 36.6; O2SAT 98
== END 2023-11-30 14:48 | disposition home or self-care (01) ==
PROVIDERS: PCP Family Medicine; Visit Provider Family Medicine
DX: Z00.00 Encounter for general adult medical examination without abnormal findings (principal); I77.74 Dissection of vertebral artery; F98.8 Other specified behavioral and emotional disorders with onset usually occurring in childhood and adolescence
CPT/HCPCS: 99214; 99395

== ENCOUNTER 2023-12-16 08:35 | Outpatient (REF) | payer OTHER, SELFPAY ==
[2023-12-16 08:57] LABS: MANUAL DIFF FLAG NO
[2023-12-16 10:17] LABS: Basophils Percent Auto 0.4 % (0-2); Eosinophils Absolute Auto 0.1 X10*3/uL (0.0-0.4); Eosinophils Percent Auto 1.6 % (0-4); Hematocrit 41.6 % (37.0-47.0); Hemoglobin 13.7 g/dl (12.0-16.0); Imm Gran Abs Auto 0.04 X10*3/uL (0.00-0.03); Imm Gran Pct Auto 0.5 % (0.0-0.4); Lymphocytes Absolute Auto 2.8 X10*3/uL (1.2-4.9); Lymphocytes Percent Auto 36.9 % (20-40); Mean Corpuscular HGB Conc 32.9 g/dl (31.0-35.0); Mean Corpuscular Hemoglobin 29.5 pg (27.0-33.0); Mean Corpuscular Volume 89.5 fL (80.0-98.0); Mean Platelet Volume 9.5 fL (9.4-12.3); Monocytes Absolute Auto 0.4 X10*3/uL (0.1-1.2); Monocytes Percent Auto 5.4 % (2-11); Neutrophils Absolute Auto 4.2 x10*3/uL (2.0-8.3); Neutrophils Percent Auto 55.2 % (45-73); Platelet Count 271 X10*3/uL (160-400); Red Blood Count 4.65 X10*6/uL (4.20-5.50); Red Cell Distribution Width 13.1 % (11.0-16.0); White Blood Count 7.6 X10*3/uL (4.8-10.8)
[2023-12-16 10:18] LABS: Appearance Urine Turbid; Color Urine Dark Yellow; Glucose Urine UA Negative (Negative); Leukocyte Esterase Urine Trace (Negative); Nitrite Urine Negative (Negative); PH 5.5 (5.0-9.0); Specific Gravity - Urine 1.025 (1.005-1.025); UMIC TRIGGER UA YES; Urine Blood Negative (Negative); Urine Ketones Trace mg/dL (Negative); Urine Protein 30 (1+) mg/dL (Neg-Trace)
[2023-12-16 10:40] LABS: Bacteria Urine 4+ (None Seen); Calcium Oxalate Crystals Urine Present; RBC Urine 0-2 /HPF (0-2); Squamous Epithelial Cell Urine >20 /HPF (0-2)
[2023-12-16 11:43] LABS: Alanine Aminotransferase 11 U/L (0-31); Albumin Level 4.1 g/dL (3.5-5.0); Alkaline Phosphatase 94 U/L (39-117); Anion Gap 10 (12-20); Aspartate Amino Transferase 17 U/L (5-31); Bilirubin Total 0.8 mg/dL (0.0-1.0); Blood Urea Nitrogen 9 mg/dL (9-16); Calcium 9.6 mg/dL (8.4-10.2); Carbon Dioxide 28 mmol/L (22-29); Chloride 106 mmol/L (96-108); Cholesterol 189 mg/dL (<200); Estimated Glomerular Filt Rate > 60; Glucose Fasting 87 mg/dL (60-99); HDL Cholesterol 57 mg/dL (>40); LDL Cholesterol Calculated 105 mg/dL (<100); Potassium 3.8 mmol/L (3.3-5.1); Sodium 140 mmol/L (135-145); Triglycerides 137 mg/dL (<150)
[2023-12-16 11:47] LABS: Microalbum/Creatinine Ratio Ur 7.3 ug/mg cr (<30)
[2023-12-16 12:00] LABS: TSH reflex Free T4 1.58 uIU/mL (0.32-4.0)
== END 2023-12-16 08:36 | disposition home or self-care (01) ==
LOC: HO.LAB 08:35
PROVIDERS: PCP Family Medicine; Visit Provider Family Medicine
DX: Z00.00 Encounter for general adult medical examination without abnormal findings (principal); I10 Essential (primary) hypertension
CPT/HCPCS: 36415; 80053; 80061; 81001; 82043; 82570; 84443; 85025

== ENCOUNTER → 2024-01-12 15:27 | Outpatient (BNVA) | payer OTHER, SELFPAY | PROVIDERS: PCP Family Medicine; Visit Provider Family Medicine ==

== ENCOUNTER → 2024-01-12 15:27 | Outpatient (AMB) | payer OTHER, SELFPAY ==
--- NOTE | 2024-01-12 15:25 | MHC.PC.OV ---
Intake Visit Reasons: f/u CPE-labs via telemedicine Allergies No Known Allergies Allergy (Verified 01/12/24 15:25) Tobacco use date assessed: 03/04/23 Dental Screening Dental Screen Date: 06/03/23 HPI f/u CPE-labs via telemedicine HPI Details 33 y/o female presents to f/u CPE-labs via telemedicine. Labs drawn 12/16/23. Reviewed labs with pt. Triglycerides 137. TC 189. LDL 105. HDL 57. TSH 1.58. 4+ urine bacteria seen. PFSH Medical History ADHD Anxiety Surgical History No pertinent past surgical history Family History Father Lung cancer Mother No problems noted. Sister No problems noted. 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 How many drinks containing alcohol do you have on a typical day when you are drinking?: 1 or 2 3. How often do you have six or more drinks on one occasion?: Never Total Score: 0 JJ-7 AMB Questionnaire JJ-7 Date JJ - 7 assessed: 11/30/23 Source: Developed by Drs. Obey Garcia, Amber Mane, Mark French and colleagues, with an educational gretchen from [employer]. Review of Systems Const Denies chills, Denies fatigue, Denies fever(s), Denies headache(s) and Denies weakness ENT Denies dizziness and Denies headache(s) Card Denies dyspnea Resp Denies cough, Denies dyspnea, Denies wheezing and Denies other (shortness of breath) Musc Denies numbness and Denies tingling Neuro Denies dizziness, Denies headache(s), Denies numbness, Denies tingling and Denies weakness Psych Denies anxiety and Denies depression Endo Denies fatigue Aller/Immun Denies wheezing Physical exam (Primary Care) Tobacco/Smoking Status: Tobacco use Status Tobacco use date assessed 03/04/23 01/12/24 15:27 Patient Tobacco Use Status Never used Tobacco 01/12/24 15:27 e-Cigarette/Vaping Use Never Used 01/12/24 15:27 Thrive Assessment: Date of Thrive Assessment Date Thrive assessed 11/30/23 01/12/24 15:27 Telehealth Telehealth Telehealth Platform: Telephone Location of provider rendering services: practice address Location of patient: address on file Patient Identification confirmed using: Name, : Yes Telehealth method: voice only Patient verbally consented to treatment: Yes Patient verbally consented to billing insurance company: Yes Patient informed of any privacy concerns related to visit: Yes Minutes spent on Phone/Video with Pt.: 6 Assessment and Plan Assessment & Plan (1) Elevated LDL cholesterol level: Code(s): E78.00 - Pure hypercholesterolemia, unspecified Plan: Mildly?elevated?LDL?cholesterol - slightly?above?goal?of?less?than?100. HDL?is?good?and?HDL?ratios?are?good. No?indication?for?medicine?at?this?time?but?recommended?a?diet?low?in?saturated?fats?and?cholesterol (2) Bacteria in urine: Code(s): R82.71 - Bacteriuria Plan: Bacteriuria?without?symptoms?and?patient's?urine?was?maximally?concentrated.??Likely?asymptomatic?bacteriuria?or?contamination She?will?hydrate?well?and?let?me?know?if?she?is?having?any?problems?or?symptoms (3) Attention deficit disorder (ADD) in adult: Code(s): F98.8 - Other specified behavioral and emotional disorders with onset usually occurring in childhood and adolescence Plan: Patient?does?not?have?any?increase?in?anxiety,?sleep?disturbances?or?appetite?disturbances?on?her?Vyvanse. Continue?current?medication Coding Level of Care Code Tele Est Pt Level 2 (07663) Diagnoses Elevated LDL cholesterol level E78.00 Bacteria in urine R82.71 Attention deficit disorder (ADD) in adult F98.8
== END ==
LOC: HO.HMCFM 15:27
PROVIDERS: PCP Family Medicine; Visit Provider Family Medicine
DX: E78.00 Pure hypercholesterolemia, unspecified (principal); R82.71 Bacteriuria; F98.8 Other specified behavioral and emotional disorders with onset usually occurring in childhood and adolescence

== ENCOUNTER 2024-02-16 12:42 | Outpatient (AMB) | payer OTHER, SELFPAY ==
[2024-02-16 13:10] VITALS: BP 112/70; BMI 21.7
--- NOTE | 2024-02-16 13:10 | MHC.OFFVIS ---
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 No complaints. Last Pap/HPV was negative in 12/15 [facility] Medical History ADHD Anxiety Surgical History No pertinent past surgical history Family History Father Lung cancer Mother No problems noted. Sister No problems noted. 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 Current occupational exposures/hazards: No Sexual orientation: Straight/Heterosexual Gender identity: Female Cognitive needs: No Hearing needs: No Vision needs: No Female Reproductive History Menstrual Age of Menarche: 12 Duration of menses: 3-5 days Date of last menstrual period: 01/28/24 control method: none Total pregnancies: 0 Date of last pap smear: 12/13/20 (neg pap and hpv) Review of Systems Const All systems reviewed & are unremarkable except as noted in HPI and below Card Reports as per HPI Resp Reports as per HPI GI Reports as per HPI and Reports no additional complaints Reports as per HPI Physical Exam Vital Signs: BMI result Body Mass Index 21.7 Const General: cooperative, healthy appearing and comfortable Chest Chest palpation & inspection: normal inspection of the chest and normal palpation of entire chest wall Breast/axilla inspection: normal inspection of the breasts and normal inspection of the axillae Breast/axilla palpation: normal palpation of the breasts, normal palpation of the axillae and no axillary lymphadenopathy Resp Effort & Inspection: normal respiratory effort Auscultation: clear to auscultation bilaterally Percussion: percussion normal Cardio Palpation: normal PMI Rate: regular rate Rhythm: regular rhythm Heart sounds: no murmurs and no rubs Peripheral pulses: Peripheral pulses 2+ throughout GI Inspection: Yes normal to inspection Palpation (GI): Soft to palpation, nontender, no guarding, not rigid and No hepatosplenomegaly present Percussion: Yes normal to percussion Auscultation: normal bowel sounds Rectal Exam - Female: deferred General: Yes bladder normal to palpation External Female Exam: No lesion Speculum Exam - Vagina: normal appearance of the vagina, normal palpation, normal vaginal discharge and not erythematous Speculum Exam - Cervix: normal appearance of the cervix and normal palpation Bimanual exam- vagina & uterus: normal bimanual exam, normal palpation, uterine size normal, bladder normal to palpation, consistency normal and normal palpation Bimanual Exam- Adnexa, other: normal adnexae, no masses and no tenderness Assessment & Plan Assessment & Plan (1) Well woman exam: Code(s): Z01.419 - Encounter for gynecological examination (general) (routine) without abnormal findings Category: Medical Plan: Cotesting not indicated this year. Counseled the patient about the recommended dietary allowance of 1000 mg of Calcium & 600 IU of vitamin D. The patient was instructed to perform monthly self-breast exams and to schedule an annual exam in a year; All questions answered and the patient verbalized understanding. Instructed the patient to schedule annual exam in a year Coding Level of Care Code Est Pt Prev Care 18-39y(33394) Diagnoses Well woman exam Z01.419
== END 2024-02-16 13:18 | disposition home or self-care (01) ==
PROVIDERS: PCP Family Medicine; Visit Provider Obstetrics & Gynecology
DX: Z01.419 Encounter for gynecological examination (general) (routine) without abnormal findings (principal)
CPT/HCPCS: 99395

== ENCOUNTER → 2024-02-16 12:42 | Outpatient (BNVA) | payer OTHER, SELFPAY | PROVIDERS: PCP Family Medicine; Visit Provider Obstetrics & Gynecology | DX: Z01.419 Encounter for gynecological examination (general) (routine) without abnormal findings (principal) | CPT/HCPCS: 99395 ==